=== PATIENT | male | born 1965 | race Caucasian/White ===

== ENCOUNTER 2023-04-19 08:00 | Outpatient (CLI) | payer OTHER ==
--- NOTE | 2023-04-19 13:02 | XRAY Report ---
PROCEDURE: Knee 4 View BILAT INDICATIONS: BILAT KNEE PAIN TECHNIQUE: 4 views of the eye lateral knee(s) were acquired. COMPARISON: None. FINDINGS: Bones: No fractures or dislocations. No suspicious bony lesions. There is moderate to severe bila teral medial compartment narrowing, right greater than left. Moderate bilateral as well as patellofem oral compartment or narrowing present bilaterally. Particular osteophytes are present slightly more p rominent on the right. Lateral patellar subluxation is present on the right. No gross erosions. Soft tissues: Mild bilateral effusions. No suspicious soft tissue calcifications or masses. IMPRESSION: Tricompartmental arthritic change most severe in the right medial compartment. Reviewed by: Latasha Quevedo MD on 04/19/2023 1:00 PM PDT Approved by: Latasha Quevedo MD on 04/19/2023 1:00 PM PDT Station ID: [id number]
== END 2023-04-19 23:59 | disposition home or self-care (01) ==
LOC: DI.WOS 08:00
PROVIDERS: ATTEND Physician Assistant Surgical
DX: M17.0 Bilateral primary osteoarthritis of knee (principal)

== ENCOUNTER 2023-09-08 10:51 | Day surgery (SDC) | payer OTHER ==
[~2023-09-08 10:51] MED LIST: ACETAMINOPHEN 500 MG TABLET PO ONE; BUPIVACAINE 0.25% PF 30 ML VIAL ONE; CELECOXIB 100 MG CAPSULE PO ONE; DEXAMETHASONE 10 MG/ML VIAL ONE; KETOROLAC 30 MG/ML VIAL ONE; VANCOMYCIN 1 GM VIAL ONE; ceFAZolin 2 GM VIAL ONE; dexAMETHasone 4 MG TABLET PO ONE
--- NOTE | 2023-09-08 11:43 | ANESTHESIA ---
Pre-Anesthesia VS, & Labs - Diagnosis left knee osteoarthritis - Procedure left knee total arthroplasty Vital Signs: Temp Pulse Resp BP Pulse Ox O2 Flow Rate 36.4 C L 88 16 149/92 H 98 09/08/23 11:16 09/08/23 11:16 09/08/23 11:16 09/08/23 11:16 09/08/23 11:16 Height: 5 ft 9 in Weight (kg): 104.6 kg Body Mass Index: 34.0 BMI Classification: Obese - NPO >8 hours - Lab Results Current Lab Results: Laboratory Tests 09/08/23 11:28: POC Whole Bld Glucose 114 H Lab results reviewed: Yes Home Medications and Allergies Home Medications: Ambulatory Orders Diclofenac Sodium 1% Gel [Voltaren Gel] 1 applic TOP BID 09/07/23 Naltrexone HCl 1 tab PO DAILY 09/07/23 Naproxen 1 tab PO BID 09/07/23 buPROPion HCL [Bupropion Xl] 2 tab PO DAILY 09/07/23 hydrOXYzine HCL [Hydroxyzine HCl] 1 tab PO BID 09/07/23 oxyCODONE [Roxicodone] 1 tab PO PRN PRN 09/07/23 traMADol [Ultram] 1 tab PO PRN PRN 09/07/23 Diclofenac Sodium 1% Gel [Voltaren Gel] 1 applic TOP BID 09/07/23 Naltrexone HCl 1 tab PO DAILY 09/07/23 Naproxen 1 tab PO BID 09/07/23 buPROPion HCL [Bupropion Xl] 2 tab PO DAILY 09/07/23 hydrOXYzine HCL [Hydroxyzine HCl] 1 tab PO BID 09/07/23 oxyCODONE [Roxicodone] 1 tab PO PRN PRN 09/07/23 traMADol [Ultram] 1 tab PO PRN PRN 09/07/23 Allergies/Adverse Reactions: Allergies Allergy/AdvReac Type Severity Reaction Status Date / Time metoprolol Allergy Unknown Verified 09/08/23 11:24 Anes History & Medical History - Anesthetic History Anesthesia Complications: reports: No previous complications - Medical History Cardiovascular: reports: Atrial fibrillation (2 episodes. Currently in NSR. Had work up at [facility] that was negative) Pulmonary: reports: None Gastrointestinal: reports: None Urinary: reports: None Neuro: reports: None Musculoskeletal: reports: Osteoarthritis Endocrine/Autoimmune: reports: None Skin: reports: None Smoking Status: Former smoker (quit smoking 06/2023) Psychosocial: reports: Depression History of Cancer?: No - Surgical History General: reports: Appendectomy, Colonoscopy Exam General: Alert, Oriented x3, Cooperative, No acute distress Dental: WNL Mouth Openin Fingerbreadth Neck Mobility: Normal Mallampati classification: II Thyromental Distance: 4-6 cm Mental/Cognitive Status: Alert/Oriented X3, Normal for patient Plan Anesthesia Type: Spinal (GA as back up) Consent for Procedure(s) Verified and Reviewed: Yes Code Status: Attempt Resuscitation ASA classification: 2-Mild systemic disease Is this case an emergency?: No
[2023-09-08] MEDS ORDERED: ONDANSETRON 4 MG/2 ML VIAL IVP PRN ×2 (11:50→14:57)
[2023-09-08] MEDS ORDERED: NALOXONE 0.4 MG/ML VIAL IVP PRN (11:50)
[2023-09-08] MEDS ORDERED: MORPHINE 2 MG/ML CARPUJECT IVP PRN (11:50)
[2023-09-08] MEDS ORDERED: ATROPINE ABBOJECT 1 MG/10 ML SYRINGE IVP PRN (11:50)
[2023-09-08] MEDS ORDERED: HYDROmorphone 0.5 MG/0.5 ML SYRINGE IVP PRN (11:50)
[2023-09-08] MEDS ORDERED: fentaNYL 100 MCG/2 ML VIAL IVP PRN (11:50)
[2023-09-08] MEDS ORDERED: LACTATED RINGERS 1,000 ML IV SCH (12:00)
[2023-09-08] MEDS ORDERED: PROPOFOL 500 MG/50 ML 500 MG/50 ML VIAL ONE (12:01)
[2023-09-08] MEDS ORDERED: MIDAZOLAM 2 MG/2 ML VIAL ONE (12:02)
[2023-09-08] MEDS ORDERED: ePHEDrine 50 MG/ML VIAL IVP ONE (12:40)
[2023-09-08] MEDS ORDERED: PHENYLEPHRINE 10 MG/ML VIAL ONE (12:40)
[2023-09-08] MEDS ORDERED: GLYCOPYRROLATE 1 MG/5 ML VIAL ONE (12:43)
[2023-09-08] MEDS ORDERED: BUPIVACAINE 0.25% PF 30 ML VIAL SUBQ ONE (13:18)
[2023-09-08] MEDS ORDERED: KETOROLAC 30 MG/ML VIAL IVP ONE (13:18)
[2023-09-08] MEDS ORDERED: VANCOMYCIN 1 GM VIAL MC ONE (13:22)
[2023-09-08] MEDS ORDERED: HYDROGEN PEROXIDE 3% 473 ML BOTTLE TOP ONE (13:23)
[2023-09-08] MEDS ORDERED: TRANEXAMIC ACID 1,000 MG/10 ML VIAL ONE (14:28)
[2023-09-08] MEDS ORDERED: PROPOFOL 500 MG/50 ML 1,000 MG/100 ML VIAL ONE (14:30)
--- NOTE | 2023-09-08 14:40 | OPERATIVE REPORT ---
Operative Report - General Procedure Date: 09/08/23 Planned Procedure: left total kneeArthroplasty Pre-Op Diagnosis: Varus osteoarthritis left knee Procedure Performed: Left total knee arthroplasty using Perez [employer] Nephew journey 2 cemented total knee: #7 Oxinium cruciate retaining femoral component, #6 tibial baseplate, 9 mm tibial bearing, unresurfaced patella, Palacos antibiotic cement Post Op Diagnosis: Same as preoperative diagnosis - Procedure Note Primary Surgeon: Clarke Botello MD Secondary Surgeon: Sherry LORD Anesthesia Provider: Aaron Peck CRNA Anesthesia Technique: Spinal Estimated Blood Loss (mL): 200 Indications: This is a 58-year-old man with chronic pain to his knees left greater than right. He has tried nonoperative treatment as his been documented in the history and physical and preoperative evaluations without sustained success. He had varus deformity to his left knee, crepitus, decreased motion, tenderness over the medial joint line and to a lesser degree lateral's x-rays showed relatively good patellofemoral joint and lateral compartment but [id number] to the medial compartment with osteophytes. He has had preoperative medical evaluation. An informed consent for left total knee replacement was obtained. Findings: There was eburnated bone surfaces to the medial compartment, partial-thickness loss to lateral compartment articular surface, intact articular cartilage to the patella with the exception of mild superficial defect medial edge of patella facet. The cruciate ligaments are intact. Complications: None - Other Other Information/Narrative: The patient was brought to the operating room table. He had been given a spinal anesthetic. He was placed in a supine position. Sequential compression devices placed on the nonoperative extremity. A foot dykes was applied to the operative table to facilitate intraoperative knee flexion. A pneumatic tourniquet was applied to the proximal left thigh over stockinette. The left lower extremity was prepped and draped in a sterile manner in the usual fashion. A timeout procedure was performed by the entire operating room team and all were in agreement. A midline longitudinal incision was made with the knee in flexion. A medial patellar arthrotomy was performed. Then dissection was carried distally along the medial edge of the patellar tendon and proximally over the medial edge of the quadriceps tendon for approximately 2-1/2 cm. There was a nonspecific synovitis and some fluid within the knee joint that appeared normal. The medial soft tissues from the proximal tibia were elevated to the midline, releasing the deep portion of the medial collateral ligament along the subchondral area of the tibia medially. A small portion of the patellar tendon insertion medially was released. The patellar fat pad was partially excised. The patella was everted, the knee was flexed. The 9.5 mm starting drill was used to open the femoral can al within the notch about a centimeter proximal and slightly medial to the notch. The distal femoral cutting block was impacted, set to a primary cut with 5 degrees of varus. The Catapooolt precision 8 saw was used to provide the distal femoral cut. The pins were left in place and the block was removed. Next the extra medullary tibial guide was aligned to the mechanical axis of the tibia in coronal and sagittal planes. Approximately 3 mm cut was made off the medial tibia which was the most abnormal side.Retractors had been inserted medially, laterally and posteriorly to protect the neurovascular structures while doing the tibial osteotomy through the captured tibial guide, again using the [place] 8 precision blade. The guides were removed. Spacer blocks were inserted and found to have equal flexion and extension gaps with a 9 mm blocks. The femoral sizing guide was then impacted into position and aligned with the transepicondylar axis and [place]itesides line. A size 7 femoral component was indicated, checked with a stylus through the block. The 5 in 1 cutting block was impacted and the multiple cuts were made through the femoral captured guide. The notch was then removed. The trial femoral component fit very well. The tibia was subluxed again using retractors medially, laterally and posteriorly. The #6 tibial guide was aligned with the mechanical axis and rotation was ve rified as well. The drill and punch fin were then used for the tibial guide. A trial reduction was performed with 9 mm tibial bearing. There was good motion, good stability and alignment. There is good tracking of the patella with no thumb technique. The articular cartilage of the patella looked quite good and because of his young age, I elected not to resurface the patellaThe components were removed, tourniquet elevated, pulsatile lavage was performed using dilute hydrogen peroxide and saline. The components were sequentially inserted using Palacos antibiotic cement. The tibial component was inserted first, impacted. Next the femoral component was impacted and fully seated. A trial tibial bearing was inserted. The knee was placed in full extension while the cement hardened. Dilute Betadine irrigation for 3 minutes was utilized. After the cement had hardened, the 9 mm permanent tibial bearing was inserted. The tourniquet was deflated after 18 minutes. Betadine dilute irrigation was performed again as well as inserting 2 g of vancomycin powder. The deep closure was performed with #1 strata fix to try to achieve a watertight closure. The subcutaneous tissue was closed with 2 0 strata fix. The skin was closed with 3- 0 MonocrylDermabond, Mepilex dressing and [place] wrap. He received 2 g of Ancef intravenously. He received 2 g of tranxemic acid. A physician housing assistant property manager was medically necessary to help with retraction, exposure, protection of vital structures, prepping and draping, wound closure and dressingHe tolerated the procedure well
[2023-09-08] MEDS ORDERED: LACTATED RINGERS 500 ML IV ONE (14:56)
[2023-09-08] MEDS ORDERED: DOCUSATE SODIUM 100 MG CAPSULE PO PRN (14:57)
[2023-09-08] MEDS ORDERED: SODIUM CHLORIDE FLUSH 0.9% 10 ML SYRINGE IVP PRN (14:57)
[2023-09-08] MEDS ORDERED: fentaNYL 250 MCG/5 ML VIAL IVP PRN (14:57)
[2023-09-08] MEDS ORDERED: GABAPENTIN 300 MG CAPSULE PO PRN (15:03)
[2023-09-08] MEDS ORDERED: ONDANSETRON 4 MG/2 ML VIAL ONE (15:10)
--- NOTE | 2023-09-08 15:28 | ANESTHESIA POST OP EVALUATION ---
Anesthesia Post Eval - Post Anesthesia Eval Vitals: Last Vital Signs Temp 36.2 C L 09/08/23 14:56 Pulse 76 09/08/23 15:10 Resp 12 09/08/23 15:10 BP 102/70 09/08/23 15:10 Pulse Ox 97 09/08/23 15:10 O2 Flow Rate CV Function Including HR & BP: Stable Pain Control: Satisfactory Nausea & Vomiting: Negative Mental Status: Baseline Respiratory Status: Airway Patent Hydration Status: Satisfactory Anesthesia Complications: None
[2023-09-08] MEDS: ceFAZolin (2G) 2 GM in SODIUM CHLORIDE 0.9% MINIBAG 100 ML IV SCH ×2 (15:54→22:23)
[2023-09-08] MEDS: ACETAMINOPHEN 500 MG TABLET PO SCH ×2 (15:55→20:18)
[2023-09-08] MEDS: SODIUM CHLORIDE FLUSH 0.9% 10 ML SYRINGE IVP SCH ×2 (16:02→23:53)
[2023-09-08] MEDS: NS W/20 MEQ KCL 1,000 ML IV SCH (16:02)
--- NOTE | 2023-09-08 18:02 | XRAY Report ---
PROCEDURE: Knee 2 View LT INDICATIONS: post operative imaging TECHNIQUE: 2 views of the left knee(s) were acquired. COMPARISON: None. FINDINGS: Bones: Left knee arthroplasty in expected position. Soft tissues: Postoperative changes. IMPRESSION: Postoperative changes following left knee arthroplasty. Reviewed by: Gabe Gtz MD on 09/08/2023 6:01 PM PDT Approved by: Gabe Gtz MD on 09/08/2023 6:01 PM PDT Station ID: [id number]
[2023-09-08] MEDS: traMADol 50 MG TABLET PO SCH ×2 (18:53→23:53)
[2023-09-08] MEDS: CELECOXIB 100 MG CAPSULE PO SCH (20:18)
[2023-09-08] MEDS: ethyl alcohoL 62% SWAB AMPULE NAS SCH (20:18)
[2023-09-08] MEDS: ASPIRIN EC 81 MG TABLET PO SCH (20:18)
[2023-09-08] MEDS: oxyCODONE 5 MG TABLET PO PRN (21:17)
[2023-09-09] MEDS: ACETAMINOPHEN 500 MG TABLET PO SCH (02:22)
[2023-09-09] MEDS: NS W/20 MEQ KCL 1,000 ML IV SCH ×2 (02:25→14:05)
[2023-09-09] MEDS: oxyCODONE 5 MG TABLET PO PRN ×2 (03:51→10:37)
[2023-09-09] MEDS: traMADol 50 MG TABLET PO SCH ×2 (05:43→14:06)
--- NOTE | 2023-09-09 08:11 | PROVIDER PROGRESS NOTE ---
Subjective - General Procedure Date: 09/08/23 Post Op Days: 1 Procedure Performed: Left total knee arthroplasty - Other Other Information/Narrative: Alert, sitting up right in bed, watching videos on his phone He denies chest pain, dyspnea, nausea and emesis Pain is moderately controlled. He reports taking oxycodone twice overnight He has not yet been evaluated by physical therapy Objective - Patient Data Reviewed Vital Signs: Yes Vital Signs: Vital Signs x48h Temp Pulse Resp BP Pulse Ox 09/09/23 05:25 36.5 C 84 18 138/84 H 95 Weight: Weight 09/07/23 09/08/23 09/09/23 23:59 23:59 23:59 Weight (kg) 104.6 kg Intake & Output: Intake and Output Totals x24h 09/07/23 09/08/23 09/09/23 23:59 23:59 23:59 Intake Total 1700 1500 Output Total 1150 1125 Balance 550 375 - Lab Results Other Lab Results: Lab Results x24hrs 09/08/23 Range/Units 11:28 POC Whole Bld Glucose 114 H (70 - 100) mg/dL - Imaging Results Radiology Imaging: positive: Prelim report reviewed - Current Medications Current Medications: Current Medications Generic Name Dose Route Start Last Admin Trade Name Freq PRN Reason Stop Dose Admin Acetaminophen 1,000 mg 09/08/23 15:00 09/09/23 02:22 Acetaminophen 500 Mg Tablet PO 1,000 mg Q6H ALEX Administration Alcohol 1 amp 09/08/23 21:00 09/08/23 20:18 Ethyl Alcohol 62% Swab Ampule RONALD 1 amp BID ALEX Administration Aspirin 81 mg 09/08/23 21:00 09/08/23 20:18 Aspirin Ec 81 Mg Tablet PO 81 mg BID ALEX Administration Celecoxib 200 mg 09/08/23 21:00 09/08/23 20:18 Celecoxib 100 Mg Capsule PO Not Given BID ALEX Potassium Chloride/Sodium Chloride 1,000 mls @ 100 mls/hr 09/08/23 15:00 09/09/23 02:25 Normal Saline 0.9% W/20 Meq Kcl IV 100 mls/hr .Q10H ALEX Administration Oxycodone HCl 5 mg 09/08/23 14:57 09/09/23 03:51 Oxycodone 5 Mg Tablet PO 5 mg Q6HR PRN Administration Severe Breakthrough pain(8-10) Sodium Chloride 10 ml 09/08/23 17:00 09/08/23 23:53 Sodium Chloride Flush 0.9% 10 Ml Syringe IVP Not Given 0100,0900,1700 [facility] Tramadol HCl 50 mg 09/08/23 18:00 09/09/23 05:43 Tramadol 50 Mg Tablet PO 50 mg Q6HR [facility] Administration - Physical Exam Comments/Other: well developed, well nourished, 58 year old male, no acute distress. Pleasant affect Dressing is dry and intact without drainage. No hematoma. Neurovascular intact to the left lower extremity in the femoral and sciatic nerve distribution. ABX Reporting Has patient been on IV antibiotics over the past 48 hours?: Yes Impression/Plan - Problem List Problem List: 58-year-old male with a past medical history of anxiety, alcohol use and paroxysmal A-fib (2018) is postoperative day 1 from a left total knee arthroplasty by Dr. Botello on 09/08/[address] [facility]. His pain is moderately controlled and he is awaiting physical therapy evaluation today. He is tolerating normal diet without nausea or emesis. He is passing urine spontaneously. IV antibiotics completed overnight. Plan: - DVT prophylaxis with 81 mg of aspirin twice daily for 6 weeks, SCDs in hospital - Physical and occupational therapy evaluation today and assessment for discharge home - Pain control with scheduled tylenol, celebrex, tramadol and oxycodone and IV fentanyl as needed - Weight bearing as tolerated with front wheeled walker at all times - Follow up with orthopedic clinic in 5 days - Ice pack as needed - Mepilex dressing to remain in place until follow up - Refer to OPS discharge instructions and call the orthopedic office with outstanding questions - Bowel regimen while in the hospital - Normal diet, IV fluids to be discontinued when tolerating oral diet without nausea and emesis - Gabapentin 600 mg qAM as needed - home medication - Bupropion 300 mg daily - home medication
[2023-09-09] MEDS ORDERED: buPROPion XL 150 MG TABLET PO SCH (09:00)
[2023-09-09] MEDS: ethyl alcohoL 62% SWAB AMPULE NAS SCH (09:15)
[2023-09-09] MEDS: CELECOXIB 100 MG CAPSULE PO SCH (09:16)
[2023-09-09] MEDS: ASPIRIN EC 81 MG TABLET PO SCH (09:16)
[2023-09-09] MEDS: SODIUM CHLORIDE FLUSH 0.9% 10 ML SYRINGE IVP SCH ×2 (10:23→15:21)
--- NOTE | 2023-09-09 11:22 | PHARMACY PROGRESS NOTE ---
- Best Possible Medication History Admit Date and Time: Processed by: Nursing As the person ultimately responsible for medication therapy, providers are able to order a medication from an existing home medication list in [facility] via the "Reconcile Routine" prior to Confirmation of that medication by clerical support. Such practice is discouraged except when the physician, in their clinical judgment, deems that a medical need exists for a medication without regard to previous use.
[2023-09-09 16:56] VITALS: BP 149/94; O2SAT 93
== END 2023-09-09 16:30 | disposition home or self-care (01) ==
LOC: SDS 10:51 → MS2 12:10 → SDS 09-09 16:30
PROVIDERS: ATTEND Orthopaedic Surgery
DX: M17.12 Unilateral primary osteoarthritis, left knee (principal); I48.0 Paroxysmal atrial fibrillation; E66.9 Obesity, unspecified; Z68.34 Body mass index [BMI] 34.0-34.9, adult; Z87.891 Personal history of nicotine dependence
CPT/HCPCS: 27447; 73560; 97110; 97161; 97166; 97530; A9270; C1713; J3370; J7120

== ENCOUNTER 2023-09-27 09:45 | Outpatient (CLI) | payer OTHER ==
[2023-09-27 10:14] LABS: BF CLARITY BLOODY; BF COLOR BLOODY; BF SOURCE SYNOVIAL; CC,BF RBC 70000 /mm^3; CC,BF WBC 71530 /mm^3
[2023-09-27 10:32] LABS: LYMPHOCYTES %,BODY FLUID 7 %; MONOCYTES %,BODY FLUID 3 %; NEUTROPHILS %, BF 90 %
== END 2023-09-27 09:46 | disposition home or self-care (01) ==
LOC: LAB.R 09:45
PROVIDERS: ATTEND Orthopaedic Surgery
DX: Z96.652 Presence of left artificial knee joint (principal)
CPT/HCPCS: 87070; 87205; 89051

== ENCOUNTER 2023-09-29 10:03 | Inpatient (IN) | payer OTHER ==
[2023-09-29] MEDS ORDERED: ceFAZolin 2 GM VIAL ONE (10:09)
[2023-09-29] MEDS ORDERED: ACETAMINOPHEN 500 MG TABLET PO ONE (10:09)
[2023-09-29] MEDS ORDERED: CELECOXIB 100 MG CAPSULE PO ONE (10:09)
[2023-09-29] MEDS ORDERED: BUPIVACAINE 0.25% PF 30 ML VIAL ONE (10:11)
[2023-09-29] MEDS ORDERED: KETOROLAC 30 MG/ML VIAL ONE (10:11)
[2023-09-29] MEDS ORDERED: VANCOMYCIN 1 GM VIAL ONE (10:11)
[2023-09-29] MEDS ORDERED: LACTATED RINGERS 1,000 ML IV ONE (10:40)
[2023-09-29] MEDS ORDERED: PROPOFOL 500 MG/50 ML 500 MG/50 ML VIAL ONE ×2 (11:07→12:46)
[2023-09-29] MEDS ORDERED: fentaNYL 100 MCG/2 ML VIAL ONE ×2 (11:09→14:54)
[2023-09-29] MEDS ORDERED: MIDAZOLAM 2 MG/2 ML VIAL ONE ×2 (11:09→11:31)
[2023-09-29 11:19] LABS: BASOPHILS % (AUTO) 0.3 %; EOSINOPHILS # (AUTO) 0.2 10^3/uL (0.0-0.7); EOSINOPHILS % (AUTO) 1.4 %; HCT - HEMATOCRIT 30.6 % (42.0-52.0); HGB - HEMOGLOBIN 9.8 g/dL (14.0-18.0); LYMPHOCYTES # (AUTO) 0.6 10^3/uL (1.5-3.5); LYMPHOCYTES % (AUTO) 5.4 %; MEAN CORPUSCULAR HEMOGLOBIN 31.5 pg (27.0-31.0); MEAN CORPUSCULAR VOLUME 98.4 fL (80.0-94.0); MEAN PLATELET VOLUME 8.9 fL (7.4-11.4); MONOCYTES # (AUTO) 1.2 10^3/uL (0.0-1.0); MONOCYTES % (AUTO) 10.9 %; NEUTROPHILS % (AUTO) 81.4 %; PLT - PLATELET COUNT 355 10^3/uL (130-450); RED BLOOD COUNT 3.11 10^6/uL (4.70-6.10); RED CELL DISTRIBUTION WIDTH 14.5 % (12.0-15.0); WHITE BLOOD COUNT 11.1 x10^3/uL (4.8-10.8)
[2023-09-29] MEDS ORDERED: PHENYLEPHRINE HCL 0.5 MG/5 ML AMPULE ONE (11:41)
[2023-09-29 11:43] LABS: ALBUMIN 3.5 g/dL (3.2-5.5); ALBUMIN/GLOBULIN RATIO 1.1 (1.0-2.2); BILIRUBIN,TOTAL 0.6 mg/dL (0.2-1.0); CALCIUM 9.1 mg/dL (8.5-10.3); CREATININE 0.9 mg/dL (0.6-1.3); POTASSIUM 3.8 mmol/L (3.5-4.5); TOTAL PROTEIN 6.7 g/dL (6.4-8.9)
[2023-09-29] MEDS ORDERED: TRANEXAMIC ACID 1,000 MG/10 ML VIAL ONE ×2 (11:54→13:28)
[2023-09-29] MEDS ORDERED: KETOROLAC 30 MG/ML VIAL IVP ONE (12:25)
[2023-09-29] MEDS ORDERED: BUPIVACAINE 0.25% PF 30 ML VIAL SUBQ ONE ×2 (12:26)
[2023-09-29] MEDS ORDERED: HYDROGEN PEROXIDE 3% 473 ML BOTTLE TOP ONE ×2 (12:26)
--- NOTE | 2023-09-29 13:41 | ANESTHESIA ---
Pre-Anesthesia VS, & Labs - Diagnosis Left knee joint infection - Procedure Irrigation and debridement of Left knee joint with poly exchange Vital Signs: Temp Pulse Resp BP Pulse Ox O2 Flow Rate 36.2 C L 108 H 16 131/72 H 99 0 09/29/23 10:41 09/29/23 10:41 09/29/23 10:41 09/29/23 10:41 09/29/23 10:41 09/29/23 10:41 Height: 5 ft 10 in Weight (kg): 102.06 kg Body Mass Index: 32.3 BMI Classification: Obese - NPO >8 hours - Lab Results Current Lab Results: Laboratory Tests 09/29/23 10:51: POC Whole Bld Glucose 95 09/29/23 10:50: Sodium 136, Potassium 3.8, Chloride 102, Carbon Dioxide 26, Anion Gap 8.0, BUN 25 H, Creatinine 0.9, Estimated GFR (MDRD) 87 L, Glucose 96, Calcium 9.1, Total Bilirubin 0.6, AST 25, ALT 20, Alkaline Phosphatase 97, C- Reactive Protein 35.0 H, Total Protein 6.7, Albumin 3.5, Globulin 3.2, Albumin/Globulin Ratio 1.1 09/29/23 10:50: ESR 79 H 09/29/23 10:50: WBC 11.1 H, RBC 3.11 L, Hgb 9.8 L, Hct 30.6 L, MCV 98.4 H, MCH 31.5 H, MCHC 32.0, RDW 14.5, Plt Count 355, MPV 8.9, Neut # (Auto) 9.0 H, Lymph # (Auto) 0.6 L, [place] # (Auto) 1.2 H, Eos # (Auto) 0.2, Baso # (Auto) 0.0, Abso lute Nucleated RBC 0.00, Nucleated RBC % 0.0 Lab results reviewed: Yes Fish Bones: 09/29/23 10:50 09/29/23 10:50 Home Medications and Allergies Home Medications: Ambulatory Orders Diclofenac Sodium 1% Gel [Voltaren Gel] 1 applic TOP BID 09/27/23 buPROPion HCL [Wellbutrin Xl] 300 mg PO DAILY 09/27/23 oxyCODONE [Roxicodone] 5 mg PO Q4-6H 09/27/23 Atorvastatin [Lipitor] 1 mg ORAL DAILY 09/29/23 Diclofenac Sodium 1% Gel [Voltaren Gel] 1 applic TOP BID 09/27/23 buPROPion HCL [Wellbutrin Xl] 300 mg PO DAILY 09/27/23 oxyCODONE [Roxicodone] 5 mg PO Q4-6H 09/27/23 Atorvastatin [Lipitor] 1 mg ORAL DAILY 09/29/23 Allergies/Adverse Reactions: Allergies Allergy/AdvReac Type Severity Reaction Status Date / Time metoprolol Allergy Unknown Verified 09/26/23 20:44 Anes History & Medical History - Anesthetic History Anesthesia Complications: reports: No previous complications - Medical History Cardiovascular: reports: Atrial fibrillation (2 prior episodes, currently NSR) Pulmonary: reports: None Gastrointestinal: reports: None Urinary: reports: None Neuro: reports: None Musculoskeletal: reports: Osteoarthritis, Other (Left knee joint infection) Endocrine/Autoimmune: reports: None Skin: reports: None Smoking Status: Former smoker (quit smoking 06/2023) Psychosocial: reports: No issues indicated History of Cancer?: No - Surgical History General: reports: Appendectomy, Colonoscopy Orthopedic: reports: Knee replacement Exam General: Alert, Oriented x3, Cooperative, No acute distress Dental: Poor dentition Mouth Openin Fingerbreadth Neck Mobility: Normal Mallampati classification: II Thyromental Distance: 4-6 cm Mental/Cognitive Status: Alert/Oriented X3, Normal for patient Plan Anesthesia Type: Spinal Consent for Procedure(s) Verified and Reviewed: Yes Code Status: Attempt Resuscitation ASA classification: 2-Mild systemic disease Is this case an emergency?: No
[2023-09-29] MEDS ORDERED: ATROPINE ABBOJECT 1 MG/10 ML SYRINGE IVP PRN (13:42)
[2023-09-29] MEDS ORDERED: NALOXONE 0.4 MG/ML VIAL IVP PRN (13:42)
[2023-09-29] MEDS ORDERED: ONDANSETRON 4 MG/2 ML VIAL IVP PRN ×2 (13:42→14:09)
[2023-09-29] MEDS ORDERED: MORPHINE 2 MG/ML CARPUJECT IVP PRN (13:42)
[2023-09-29] MEDS ORDERED: HYDROmorphone 0.5 MG/0.5 ML SYRINGE IVP PRN (13:42)
--- NOTE | 2023-09-29 13:46 | OPERATIVE REPORT ---
Operative Report - General Admit Date: 09/29/23 Procedure Date: 09/29/23 Planned Procedure: . Irrigation and debridement left knee joint periprosthetic infection; DAIR procedure with tibial bearing exchange Pre-Op Diagnosis: Acute periprosthetic left knee joint infection Procedure Performed: Irrigation and debridement left knee joint, DAIR procedure with exchange of tibial bearing; 9 mm medial pivot tibial bearing;Insertion of PICC line Post Op Diagnosis: Same as preoperative diagnosis - Procedure Note Primary Surgeon: Clarke Botello MD Secondary Surgeon: Saroj Hermosillo MD, Sherry Swift [facility] Anesthesia Provider: Isidra Dubois Anesthesia Technique: Spinal Estimated Blood Loss (mL): 100 Indications: This is a 58-year-old man who underwent a primary left total knee arthroplasty for osteoarthritis left knee approximately 2 weeks ago. He developed acute signs of infection approximately 4 days ago with increased pain, swelling and redness about left knee. There is no drainage from his incision. An arthrocentesis of the left knee was performed 2 days ago and approximately 100 cc of turbid synovial fluid was obtained. This synovial fluid had a white blood cell count of approximately 71,090% neutrophils. His most recent erythrocyte sedimentation rate is 79 and C-reactive protein of 35. His white blood cell count is 11,100. The cultures are positive from the arthrocentesis with Staphylococcus organism that is sensitive to oxacillin. He also had a 4+ positive leukocyte esterase test performed on the synovial fluid. The treatment options have been discussed with him and the plan was a DAIR procedure, single but possibly a double meaning two procedures. Also, he agreed to insertion of PICC line for intravenous antibiotic administration following hospital dischargeAn informed consent was obtained prior to surgery. He has been admitted as an inpatient Findings: The knee components were completely intact and stable. There was a large amount of turbid fluid upon entering the knee joint, approximately 75 to 100 cc. The arthrotomy incision had disrupted medially but the skin incision was still intact. There was some soft tissue infected membranous appearing tissue over the implants but this was small. Most of the tissue reaction was hyperemia, some synovium appeared necrotic in the suprapatellar pouch. The fluid was turbid and 3 sets of fluid cultures were sent for anaerobic and aerobic culture and 1 large set of soft tissue for the same. Complications: None - Other Other Information/Narrative: After satisfactory anesthesia had been achieved, patient was placed in the supine position. A pneumatic tourniquet was applied to the proximal left thigh over stockinette. A bump was placed on the operating room table to help with intraoperative knee flexion. The left lower extremity was prepped and draped in a sterile manner in the usual fashion. A timeout procedure was performed by the entire operating room team and all were in agreement. The left leg was exsanguinated, pneumatic tourniquet elevated to 250 mmHg. The previous midline longitudinal incision was opened with a large egress of fluid after just entering through the skin as the medial arthrotomy was disrupted. The fluid was cultured, 3 sets of fluid culture for aerobic and anaerobic bacteriology. Debridement was then carried out of soft tissue using a uterine curette, rondure and some sharp dissection as well. The tibial bearing was removed with an osteotome so that a complete debridement of all the knee compart ments could be performed. Tissue cultures were obtained. Synovium was debrided as well. The knee had been flexed to access the posterior compartment. The patella had not been resurfaced and was intact. A sterile toothbrush was then utilized to scrub the tibial baseplate and femoral component. This was initially performed with chlorhexidine soap, then Betadine dilute.Before switching to Betadine, pulsatile lavage with normal saline was performed. After using chlorhexidine, Betadine and the pulsatile lavage, a new 9 mm medial pivot shift tibial bearing was inserted. Additional irrigation was carried out with Dakin's solution and then hydrogen peroxide, again using pulsatile saline lavage in between these 2 antiseptic washes. A total of almost 4 bags of saline were utilized, 3 L bags, utilizing pulsatile lavage. The tourniquet was deflated. Hemostasis was achieved with electrocautery. The arthrotomy incision was closed with #1 strata fix suture. The very distal end of the arthrotomy did not have full closure but did have closure of the joint. Some of the tissue distally had been debrided. The knee was stable in full extension, mid flexion and 90 degrees flexion. He had full extension and full flexion and excellent patellar tracking. The subcutaneous tissue was closed with 2 oh strata fix. The skin was closed with 3-0 Monocryl, Dermabond. Xeroform was applied to the incision, sterile gauze, cast padding from thigh to ankle with [place] wrap. He received 2 g of Ancef prior to the incision. He received 2 g of tranxemic acid, 1 g before the the incision and 1 g at the closure. He is also receiving a PICC line and additional gram of Ancef was given. The tourniquet time was approximately 73 minutesHe tolerated the procedure well. A physician dental assistant medical assistant was utilized to help with retraction, protection of vital structures, wound closure, dressing
[2023-09-29] MEDS ORDERED: ceFAZolin 1 GM VIAL ONE (13:49)
[2023-09-29] MEDS ORDERED: LACTATED RINGERS 1,000 ML IV SCH (14:00)
[2023-09-29] MEDS ORDERED: SODIUM CHLORIDE FLUSH 0.9% 10 ML SYRINGE IVP PRN (14:09)
[2023-09-29] MEDS ORDERED: DOCUSATE SODIUM 100 MG CAPSULE PO PRN (14:09)
[2023-09-29] MEDS ORDERED: LACTATED RINGERS 950 ML IV ONE ×2 (14:34)
[2023-09-29] MEDS: fentaNYL 100 MCG/2 ML VIAL IVP PRN ×4 (14:53→15:08)
--- NOTE | 2023-09-29 14:54 | XRAY Report ---
PROCEDURE: Chest for Line Placement INDICATIONS: PICC LINE PLACEMENT, LEFT ARM TECHNIQUE: One view of the chest was acquired. COMPARISON: None. FINDINGS: Surgical changes and devices: Left arm PICC line is seen with the tip in the mid SVC. Lungs and pleura: Left basilar atelectasis. Blunting of the left costophrenic angle consistent with a small left pleural effusion. Mediastinum: Mediastinal contours appear normal. Heart size is normal. Bones and chest wall: No suspicious bony lesions. Overlying soft tissues appear unremarkable. IMPRESSION: 1. Left arm PICC line appears well-positioned. 2. Small left pleural effusion and left basilar atelectasis. Reviewed by: Zay Zavala on 09/29/2023 2:53 PM PDT Approved by: Zay Zavala on 09/29/2023 2:53 PM PDT Station ID: [id number]
[2023-09-29] MEDS ORDERED: HYDROmorphone 0.5 MG/0.5 ML SYRINGE ONE (15:21)
--- NOTE | 2023-09-29 15:26 | ANESTHESIA POST OP EVALUATION ---
Anesthesia Post Eval - Post Anesthesia Eval Vitals: Last Vital Signs Temp 36.0 C L 09/29/23 15:20 Pulse 106 H 09/29/23 15:20 Resp 19 09/29/23 15:20 BP 150/86 H 09/29/23 15:20 Pulse Ox 98 09/29/23 15:20 O2 Flow Rate 0 09/29/23 10:41 CV Function Including HR & BP: Stable Pain Control: Satisfactory Nausea & Vomiting: Negative Mental Status: Baseline Respiratory Status: Airway Patent Hydration Status: Satisfactory Anesthesia Complications: None
[2023-09-29] MEDS ORDERED: MORPHINE 2 MG/ML CARPUJECT ONE (15:30)
[2023-09-29] MEDS: oxyCODONE 5 MG TABLET PO PRN ×2 (16:11→22:15)
[2023-09-29] MEDS: ACETAMINOPHEN 500 MG TABLET PO SCH ×2 (16:11→21:04)
[2023-09-29] MEDS: NS W/20 MEQ KCL 1,000 ML IV SCH (16:13)
--- NOTE | 2023-09-29 16:37 | PHARMACY PROGRESS NOTE ---
- Best Possible Medication History Admit Date and Time: 09/29/23 1003 Processed by: Pharmacy Medication History completed: Yes Patient Interview: Completed (MEDREC COMPLETED BY ANNELIESE PIÑA.) As the person ultimately responsible for medication therapy, providers are able to order a medication from an existing home medication list in [facility] via the "Reconcile Routine" prior to Confirmation of that medication by office support clerk. Such practice is discouraged except when the physician, in their clinical judgment, deems that a medical need exists for a medication without regard to previous use.
[2023-09-29] MEDS: ceFAZolin (2G) 2 GM in SODIUM CHLORIDE 0.9% MINIBAG 100 ML IV SCH ×2 (16:48→23:59)
[2023-09-29] MEDS: traMADol 50 MG TABLET PO SCH (18:01)
--- NOTE | 2023-09-29 20:01 | ANESTHESIA POST OP EVALUATION ---
Anesthesia Post Eval - Post Anesthesia Eval Vitals: Last Vital Signs Temp 36.6 C 09/29/23 18:50 Pulse 117 H 09/29/23 18:50 Resp 20 09/29/23 18:50 BP 125/61 09/29/23 18:50 Pulse Ox 93 09/29/23 18:50 O2 Flow Rate 0 09/29/23 17:37 CV Function Including HR & BP: Stable Pain Control: Satisfactory Nausea & Vomiting: Negative Mental Status: Baseline Respiratory Status: Airway Patent Hydration Status: Satisfactory Anesthesia Complications: None
--- NOTE | 2023-09-29 20:02 | ANESTHESIA PROCEDURE NOTE ---
Anesth Central Line Template - Central Line Central Line Preparation: Consent Obtained Central line location: Left Basilic Central line type: PICC Single Lumen Central line catheter tip site resides: [facility], right Central line aftercare: Secured, Placement confirmed, No pneumothorax, No complications, Bundle checklist complete, Pt tolerated well
[2023-09-29] MEDS ORDERED: ASPIRIN EC 81 MG TABLET PO SCH (21:00)
[2023-09-29] MEDS: SODIUM CHLORIDE FLUSH 0.9% 10 ML SYRINGE IVP SCH (21:04)
[2023-09-29] MEDS: ethyl alcohoL 62% SWAB AMPULE NAS SCH (21:04)
[2023-09-29] MEDS: CELECOXIB 100 MG CAPSULE PO SCH (21:04)
[2023-09-29] MEDS: rifAMPin 150 MG CAPSULE PO SCH (21:04)
[2023-09-30] MEDS: traMADol 50 MG TABLET PO SCH ×4 (00:02→18:00)
[2023-09-30] MEDS: SODIUM CHLORIDE FLUSH 0.9% 10 ML SYRINGE IVP SCH ×3 (00:03→16:09)
[2023-09-30] MEDS: ACETAMINOPHEN 500 MG TABLET PO SCH ×4 (02:56→21:23)
[2023-09-30] MEDS: oxyCODONE 5 MG TABLET PO PRN ×2 (04:24→16:07)
[2023-09-30] MEDS: fentaNYL 250 MCG/5 ML VIAL IVP PRN ×2 (05:40→10:27)
[2023-09-30 05:48] LABS: BASOPHILS % (AUTO) 0.2 %; EOSINOPHILS # (AUTO) 0.1 10^3/uL (0.0-0.7); EOSINOPHILS % (AUTO) 1.5 %; HCT - HEMATOCRIT 24.7 % (42.0-52.0); HGB - HEMOGLOBIN 8.1 g/dL (14.0-18.0); LYMPHOCYTES # (AUTO) 0.9 10^3/uL (1.5-3.5); LYMPHOCYTES % (AUTO) 10.2 %; MEAN CORPUSCULAR HGB CONC 32.8 g/dL (32.0-36.0); MEAN CORPUSCULAR VOLUME 97.6 fL (80.0-94.0); MEAN PLATELET VOLUME 8.5 fL (7.4-11.4); MONOCYTES # (AUTO) 1.3 10^3/uL (0.0-1.0); MONOCYTES % (AUTO) 14.8 %; NEUTROPHILS # (AUTO) 6.5 10^3/uL (1.5-6.6); NEUTROPHILS % (AUTO) 72.4 %; PLT - PLATELET COUNT 263 10^3/uL (130-450); RED BLOOD COUNT 2.53 10^6/uL (4.70-6.10); RED CELL DISTRIBUTION WIDTH 14.8 % (12.0-15.0)
[2023-09-30] MEDS: NS W/20 MEQ KCL 1,000 ML IV SCH ×2 (06:31→19:40)
[2023-09-30] MEDS: ceFAZolin (2G) 2 GM in SODIUM CHLORIDE 0.9% MINIBAG 100 ML IV SCH ×2 (07:50→16:08)
[2023-09-30] MEDS: rifAMPin 150 MG CAPSULE PO SCH ×2 (09:00→21:25)
[2023-09-30] MEDS: ethyl alcohoL 62% SWAB AMPULE NAS SCH ×2 (09:01→21:24)
[2023-09-30] MEDS: CELECOXIB 100 MG CAPSULE PO SCH ×2 (09:01→21:24)
[2023-09-30] MEDS: buPROPion XL 150 MG TABLET PO SCH (09:01)
[2023-09-30] MEDS: CHOLECALCIFEROL 5,000 UNIT CAPSULE PO SCH (09:02)
[2023-09-30] MEDS: ASPIRIN EC 81 MG TABLET PO SCH ×2 (09:03→21:24)
[2023-09-30] MEDS: ATORVASTATIN 10 MG TABLET PO SCH (09:03)
--- NOTE | 2023-09-30 09:08 | PROVIDER PROGRESS NOTE ---
Subjective - General Admit Date: 09/29/23 Procedure Date: 09/29/23 Post Op Days: 1 Procedure Performed: DAIR Procedure of left knee arthroplasty - Other Other Information/Narrative: Pain in left knee is moderate today He endorses little sleep over night secondary to back and neck pain, chronic in nature He has not been evaluated by physical therapy yet No nausea, emesis, dyspnea or chest pain Objective - Patient Data Reviewed Vital Signs: Yes Vital Signs: Vital Signs x48h Temp Pulse Resp BP Pulse Ox 09/30/23 07:34 36.7 C 104 H 20 128/62 96 09/30/23 05:24 36.8 C 110 H 20 127/64 92 Weight: Weight 09/28/23 09/29/23 09/30/23 23:59 23:59 23:59 Weight (kg) 102.06 kg Intake & Output: Intake and Output Totals x24h 09/28/23 09/29/23 09/30/23 23:59 23:59 23:59 Intake Total 1403.75 2266.25 Output Total 1150 1850 Balance 253.75 416.25 - Lab Results Lab Results: 09/30/23 05:25 09/29/23 10:50 Other Lab Results: Lab Results x24hrs 09/30/23 09/29/23 09/29/23 Range/Units 05:25 10:51 10:50 WBC 9.0 (4.8-10.8) x10^3/uL RBC 2.53 L (4.70-6.10) 10^6/uL Hgb 8.1 L (14.0-18.0) g/dL Hct 24.7 L (42.0-52.0) % MCV 97.6 H (80.0-94.0) fL MCH 32.0 H (27.0-31.0) pg MCHC 32.8 (32.0-36.0) g/dL RDW 14.8 (12.0-15.0) % Plt Count 263 (130-450) 10^3/uL MPV 8.5 (7.4-11.4) fL Neut # (Auto) 6.5 (1.5-6.6) 10^3/uL Lymph # (Auto) 0.9 L (1.5-3.5) 10^3/uL Price # (Auto) 1.3 H (0.0-1.0) 10^3/uL Eos # (Auto) 0.1 (0.0-0.7) 10^3/uL Baso # (Auto) 0.0 (0.0-0.1) 10^3/uL Absolute Nucleated RBC 0.00 x10^3/uL Nucleated RBC % 0.0 /100WBC ESR (0-20) mm/Hr Sodium 136 (135-145) mmol/L Potassium 3.8 (3.5-4.5) mmol/L Chloride 102 (101-111) mmol/L Carbon Dioxide 26 (21-32) mmol/L Anion Gap 8.0 (6-13) BUN 25 H (6-20) mg/dL Creatinine 0.9 (0.6-1.3) mg/dL Estimated GFR (MDRD) 87 L (>89) Glucose 96 (74-104) mg/dL POC Whole Bld Glucose 95 (70 - 100) mg/dL Calcium 9.1 (8.5-10.3) mg/dL Total Bilirubin 0.6 (0.2-1.0) mg/dL AST 25 (10-42) IU/L ALT 20 (10-60) IU/L Alkaline Phosphatase 97 (42-121) IU/L C-Reactive Protein 35.0 H (<0.5) mg/dL Total Protein 6.7 (6.4-8.9) g/dL Albumin 3.5 (3.2-5.5) g/dL Globulin 3.2 (2.1-4.2) g/dL Albumin/Globulin Ratio 1.1 (1.0-2.2) 09/29/23 09/29/23 Range/Units 10:50 10:50 WBC 11.1 H (4.8-10.8) x10^3/uL RBC 3.11 L (4.70-6.10) 10^6/uL Hgb 9.8 L (14.0-18.0) g/dL Hct 30.6 L (42.0-52.0) % MCV 98.4 H (80.0-94.0) fL MCH 31.5 H (27.0-31.0) pg MCHC 32.0 (32.0-36.0) g/dL RDW 14.5 (12.0-15.0) % Plt Count 355 (130-450) 10^3/uL MPV 8.9 (7.4-11.4) fL Neut # (Auto) 9.0 H (1.5-6.6) 10^3/uL Lymph # (Auto) 0.6 L (1.5-3.5) 10^3/uL Price # (Auto) 1.2 H (0.0-1.0) 10^3/uL Eos # (Auto) 0.2 (0.0-0.7) 10^3/uL Baso # (Auto) 0.0 (0.0-0.1) 10^3/uL Absolute Nucleated RBC 0.00 x10^3/uL Nucleated RBC % 0.0 /100WBC ESR 79 H (0-20) mm/Hr Sodium (135-145) mmol/L Potassium (3.5-4.5) mmol/L Chloride (101-111) mmol/L Carbon Dioxide (21-32) mmol/L Anion Gap (6-13) BUN (6-20) mg/dL Creatinine (0.6-1.3) mg/dL Estimated GFR (MDRD) (>89) Glucose (74-104) mg/dL POC Whole Bld Glucose (70 - 100) mg/dL Calcium (8.5-10.3) mg/dL Total Bilirubin (0.2-1.0) mg/dL AST (10-42) IU/L ALT (10-60) IU/L Alkaline Phosphatase (42-121) IU/L C-Reactive Protein (<0.5) mg/dL Total Protein (6.4-8.9) g/dL Albumin (3.2-5.5) g/dL Globulin (2.1-4.2) g/dL Albumin/Globulin Ratio (1.0-2.2) - Current Medications Current Medications: Current Medications Generic Name Dose Route Start Last Admin Trade Name Freq PRN Reason Stop Dose Admin Acetaminophen 1,000 mg 09/29/23 15:00 09/30/23 09:01 Acetaminophen 500 Mg Tablet PO 1,000 mg Q6H ALEX Administration Alcohol 1 amp 09/29/23 21:00 09/30/23 09:01 Ethyl Alcohol 62% Swab Ampule RONALD 1 amp BID ALEX Administration Aspirin 81 mg 09/30/23 09:00 09/30/23 09:03 Aspirin Ec 81 Mg Tablet PO 81 mg BID ALEX Administration Atorvastatin Calcium 10 mg 09/30/23 09:00 09/30/23 09:03 Atorvastatin 10 Mg Tablet PO 10 mg DAILY ALEX Administration Bupropion HCl 300 mg 09/30/23 09:00 09/30/23 09:01 Bupropion Xl 150 Mg Tablet PO 300 mg DAILY ALEX Administration Celecoxib 200 mg 09/29/23 21:00 09/30/23 09:01 Celecoxib 100 Mg Capsule PO 200 mg BID ALEX Administration Cholecalciferol 5,000 unit 09/30/23 09:00 09/30/23 09:02 Cholecalciferol 5,000 Unit Capsule PO 5,000 unit DAILY ALEX Administration Fentanyl 25 mcg 09/29/23 14:09 09/30/23 05:40 Fentanyl 250 Mcg/5 Ml Vial IVP 25 mcg Q2HR PRN Administration Severe Breakthrough pain(8-10) Potassium Chloride/Sodium Chloride 1,000 mls @ 75 mls/hr 09/29/23 15:00 09/30/23 06:31 Normal Saline 0.9% W/20 Meq Kcl IV 75 mls/hr .[id number] ALEX Administration Cefazolin Sodium 2 gm/ Sodium 100 mls @ 200 mls/hr 09/29/23 16:00 09/30/23 07:50 Chloride IV 200 mls/hr Q8H ALEX Administration Oxycodone HCl 5 mg 09/29/23 14:09 09/30/23 04:24 Oxycodone 5 Mg Tablet PO 5 mg Q6HR PRN Administration Severe Breakthrough pain(8-10) Rifampin 300 mg 09/29/23 21:00 09/30/23 09:00 Rifampin 150 Mg Capsule PO 300 mg BID ALEX Administration Sodium Chloride 10 ml 09/29/23 17:00 09/30/23 09:03 Sodium Chloride Flush 0.9% 10 Ml Syringe IVP 10 ml 0100,0900,1700 ALEX Administration Tramadol HCl 50 mg 09/29/23 18:00 09/30/23 05:48 Tramadol 50 Mg Tablet PO 50 mg Q6HR ALEX Administration - Physical Exam Comments/Other: alert, oriented, laying in bed Neurovascular intact to left lower extremity Dressing is dry and intact with [place] bandage from the mid left thigh to just proximal to the left ankle ABX Reporting Has patient been on IV antibiotics over the past 48 hours?: Yes Impression/Plan - Problem List Problem List: 58 year old male is post operative day 1 from DAIR procedure of left knee arthroplasty by Dr. Botello on 09/30/23 secondary to infection. He continues on IV antibiotics and is awaiting physical therapy evaluation today. He is awaiting coordination of outpatient IV antibiotics prior to discharge. Cultures from DAIR procedure yesterday show growth of Staphylococcus aureus which is oxacillin sensitive. Continue plan with Ancef and rifampin for 6 weeks of anticipated antibiotics. His hemoglobin is 8.1 today with slight tachycardia. He is afebrile. Around noon today, nurse called orthopedic surgeon stating dressing was soaking through. Dressing was changed by Dr. Botello and myself today at bedside. Dressing to remain in place and managed by Orthopedics. Serosanguineous drainage evident in web roll and [place] bandage without pustular drainage. Incision is well approximated, intact without dehiscence or erythema. Decreased effusion of left knee compared to preoperative assessment. Left knee is erythematous and warm. Plan: - DVT prophylaxis with 81 mg of aspirin twice daily for 6 weeks, SCDs in hospital - Physical and occupational therapy evaluation today - Pain control with scheduled tylenol, celebrex, tramadol and oxycodone and IV fentanyl as needed - Weight bearing as tolerated with front wheeled walker at all times - Orthopedic surgery will change dressing as needed - Bowel regimen as needed - Normal diet - Resume home medications - IV ancef 2 grams every 8 hours for 6 weeks - 300 mg rifampin by mouth twice daily for 6 weeks - Coordination with IV infusion solutions given anticipated need for IV antibiotics for at least 4-6 weeks post operatively -Daily CBC until hemoglobin is stable
[2023-09-30] MEDS: LIDOCAINE PATCH 5% TOP PRN (16:43)
[2023-09-30] MEDS: GABAPENTIN 300 MG CAPSULE PO PRN (21:25)
[2023-10-01] MEDS: traMADol 50 MG TABLET PO SCH ×5 (00:12→23:06)
[2023-10-01] MEDS: ceFAZolin (2G) 2 GM in SODIUM CHLORIDE 0.9% MINIBAG 100 ML IV SCH ×4 (00:25→23:37)
[2023-10-01] MEDS: SODIUM CHLORIDE FLUSH 0.9% 10 ML SYRINGE IVP SCH ×4 (00:25→23:37)
[2023-10-01] MEDS: GABAPENTIN 300 MG CAPSULE PO PRN ×2 (01:25→09:19)
[2023-10-01] MEDS: ACETAMINOPHEN 500 MG TABLET PO SCH ×4 (03:01→21:24)
[2023-10-01 05:38] LABS: BASOPHILS % (AUTO) 0.4 %; EOSINOPHILS # (AUTO) 0.1 10^3/uL (0.0-0.7); EOSINOPHILS % (AUTO) 0.8 %; HCT - HEMATOCRIT 25.7 % (42.0-52.0); HGB - HEMOGLOBIN 8.3 g/dL (14.0-18.0); LYMPHOCYTES # (AUTO) 1.4 10^3/uL (1.5-3.5); LYMPHOCYTES % (AUTO) 13.5 %; MEAN CORPUSCULAR HEMOGLOBIN 31.3 pg (27.0-31.0); MEAN CORPUSCULAR HGB CONC 32.3 g/dL (32.0-36.0); MEAN PLATELET VOLUME 8.7 fL (7.4-11.4); MONOCYTES # (AUTO) 1.4 10^3/uL (0.0-1.0); MONOCYTES % (AUTO) 13.7 %; NEUTROPHILS # (AUTO) 7.4 10^3/uL (1.5-6.6); NEUTROPHILS % (AUTO) 70.7 %; PLT - PLATELET COUNT 332 10^3/uL (130-450); RED BLOOD COUNT 2.65 10^6/uL (4.70-6.10); RED CELL DISTRIBUTION WIDTH 14.6 % (12.0-15.0); WHITE BLOOD COUNT 10.5 x10^3/uL (4.8-10.8)
[2023-10-01] MEDS: oxyCODONE 5 MG TABLET PO PRN (06:46)
[2023-10-01] MEDS: NS W/20 MEQ KCL 1,000 ML IV SCH (06:49)
[2023-10-01] MEDS: LIDOCAINE PATCH 5% TOP PRN (07:06)
[2023-10-01] MEDS: ATORVASTATIN 10 MG TABLET PO SCH (09:06)
[2023-10-01] MEDS: rifAMPin 150 MG CAPSULE PO SCH ×2 (09:06→21:23)
[2023-10-01] MEDS: ethyl alcohoL 62% SWAB AMPULE NAS SCH ×2 (09:06→21:25)
[2023-10-01] MEDS: CHOLECALCIFEROL 5,000 UNIT CAPSULE PO SCH (09:06)
[2023-10-01] MEDS: CELECOXIB 100 MG CAPSULE PO SCH (09:06)
[2023-10-01] MEDS: ASPIRIN EC 81 MG TABLET PO SCH ×2 (09:06→21:23)
[2023-10-01] MEDS: buPROPion XL 150 MG TABLET PO SCH (09:06)
--- NOTE | 2023-10-01 09:44 | PROVIDER PROGRESS NOTE ---
Subjective - General Admit Date: 09/29/23 Procedure Date: 09/29/23 Post Op Days: 2 Procedure Performed: DAIR Procedure of left knee arthroplasty - Other Other Information/Narrative: The patient reports considerable localized back pain. His back pain is localized to the lumbar spine without radiation or neurologic symptoms. His back pain started when he twisted his back coming into the hospital. He has had episodes of back pain before and the pain usually resolves spontaneously. He states his knee pain is under good control and is not bothering him. His back pain is what is limiting his ability to move, sit, get out of bed and walk. He denies chest pain, shortness of breath, nausea or vomiting. He can take a deep breath without pain. Objective - Patient Data Vital Signs: Vital Signs x48h Temp Pulse Resp BP Pulse Ox 10/01/23 07:53 37.5 C 103 H 20 144/71 H 91 L 10/01/23 04:20 37.6 C 106 H 20 153/75 H 92 Weight: Weight 09/29/23 09/30/23 10/01/23 23:59 23:59 23:59 Weight (kg) 102.06 kg Intake & Output: Intake and Output Totals x24h 09/29/23 09/30/23 10/01/23 23:59 23:59 23:59 Intake Total 1403.75 6141.25 400 Output Total 1150 4255 1850 Balance 253.75 1886.25 -1450 - Lab Results Lab Results: 10/01/23 04:58 09/29/23 10:50 Other Lab Results: Lab Results x24hrs 10/01/23 Range/Units 04:58 WBC 10.5 (4.8-10.8) x10^3/uL RBC 2.65 L (4.70-6.10) 10^6/uL Hgb 8.3 L (14.0-18.0) g/dL Hct 25.7 L (42.0-52.0) % MCV 97.0 H (80.0-94.0) fL MCH 31.3 H (27.0-31.0) pg MCHC 32.3 (32.0-36.0) g/dL RDW 14.6 (12.0-15.0) % Plt Count 332 (130-450) 10^3/uL MPV 8.7 (7.4-11.4) fL Neut # (Auto) 7.4 H (1.5-6.6) 10^3/uL Lymph # (Auto) 1.4 L (1.5-3.5) 10^3/uL [place] # (Auto) 1.4 H (0.0-1.0) 10^3/uL Eos # (Auto) 0.1 (0.0-0.7) 10^3/uL Baso # (Auto) 0.0 (0.0-0.1) 10^3/uL Absolute Nucleated RBC 0.00 x10^3/uL Nucleated RBC % 0.0 /100WBC - Current Medications Current Medications: Current Medications Generic Name Dose Route Start Last Admin Trade Name Freq PRN Reason Stop Dose Admin Acetaminophen 1,000 mg 09/29/23 15:00 10/01/23 09:12 Acetaminophen 500 Mg Tablet PO 1,000 mg Q6H ALEX Administration Alcohol 1 amp 09/29/23 21:00 10/01/23 09:06 Ethyl Alcohol 62% Swab Ampule RONALD 1 amp BID ALEX Administration Aspirin 81 mg 09/30/23 09:00 10/01/23 09:06 Aspirin Ec 81 Mg Tablet PO 81 mg BID ALEX Administration Atorvastatin Calcium 10 mg 09/30/23 09:00 10/01/23 09:06 Atorvastatin 10 Mg Tablet PO 10 mg DAILY ALEX Administration Bupropion HCl 300 mg 09/30/23 09:00 10/01/23 09:06 Bupropion Xl 150 Mg Tablet PO 300 mg DAILY ALEX Administration Celecoxib 200 mg 09/29/23 21:00 10/01/23 09:06 Celecoxib 100 Mg Capsule PO 200 mg BID ALEX Administration Cholecalciferol 5,000 unit 09/30/23 09:00 10/01/23 09:06 Cholecalciferol 5,000 Unit Capsule PO 5,000 unit DAILY ALEX Administration Fentanyl 25 mcg 09/29/23 14:09 09/30/23 10:27 Fentanyl 250 Mcg/5 Ml Vial IVP 25 mcg Q2HR PRN Administration Severe Breakthrough pain(8-10) Potassium Chloride/Sodium Chloride 1,000 mls @ 75 mls/hr 09/29/23 15:00 10/01/23 06:49 Normal Saline 0.9% W/20 Meq Kcl IV 75 mls/hr .[id number] ALEX Administration Cefazolin Sodium 2 gm/ Sodium 100 mls @ 200 mls/hr 09/29/23 16:00 10/01/23 09:06 Chloride IV 200 mls/hr Q8H ALEX Administration Lidocaine 1 patch 09/30/23 16:33 10/01/23 07:06 Lidocaine Patch 5% TOP 1 patch DAILY PRN Administration Moderate Pain (Level 4-6) Rifampin 300 mg 09/29/23 21:00 10/01/23 09:06 Rifampin 150 Mg Capsule PO 300 mg BID ALEX Administration Sodium Chloride 10 ml 09/29/23 17:00 10/01/23 00:25 Sodium Chloride Flush 0.9% 10 Ml Syringe IVP 10 ml 0100,0900,1700 ALEX Administration Tramadol HCl 50 mg 09/29/23 18:00 10/01/23 05:55 Tramadol 50 Mg Tablet PO 50 mg Q6HR ALEX Administration - Physical Exam Comments/Other: The left knee dressing is dry and intact. Neurovascular is intact to left leg. He can take a deep inspiration without any pain. He has no tenderness to percussion over thoracic spine but does have a localized tenderness about L3 to percussion of the lumbar spine. There is no paravertebral muscle spasm. There is no neurologic deficit to lower extremities. He can move his neck well without any pain. Impression/Plan - Problem List Problem List: 1. Acute periprosthetic infection left knee The infection has been documented by multiple positive cultures consistent with Staph aureus, sensitive to oxacillin. He is currently on 2 g of Ancef intravenously every 8 hours and rifampin 300 mg twice daily. This regimen should be continued as outpatient for approximately 6 weeks through his PICC line. He seems to be responding to treatment. 2. Acute low back pain Multimodal pain management is being utilized. Orders for thoracic and lumbar spine x-ray has been ordered. He is on deep venous thrombosis prophylaxis with aspirin 81 mg twice daily and sequential compression device to lower extremity
--- NOTE | 2023-10-01 10:39 | XRAY Report ---
PROCEDURE: Thoracic Spine 2 View INDICATIONS: Pain TECHNIQUE: 2 views of the thoracic spine were acquired. COMPARISON: None. FINDINGS: Bones: No fractures or dislocations. No suspicious bony lesions. 12 pairs of ribs are noted, and a ppear intact where visualized. Soft tissues: No paravertebral stripe thickening. Question mild interstitial pulmonary edema. IMPRESSION: 1. No acute bony abnormality. No significant degenerative change. 2. Question mild interstitial pulmonary edema. Suggest clinical correlation. Reviewed by: Oniel Nava MD on 10/01/2023 10:38 AM PDT Approved by: Oniel Nava MD on 10/01/2023 10:38 AM PDT Station ID: [id number]
--- NOTE | 2023-10-01 11:02 | DISCHARGE SUMMARY ---
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 On Wednesday09/24/2023, patient Was reportedly working with physical therapy when he noticed an increase in pain, erythema and effusion about the left knee. He had pain with range of motion and decreased flexion of the left knee. He denies drainage, fever or chills. Over the next 2 days, swelling and pain worsened leading him to seek care in the emergency department on 09/26/2023 and followed up with orthopedic surgeon Dr. Botello on 09/27/2023. In the office, an arthrocentesis was performed in which 100 cc of turbid blood tinged fluid was collected and sent for culture and sensitivity. A leukocyte Estrace test in the office was positive. The arthrocentesis showed a white blood cell count greater than 71,000 with 90% neutrophils. Gram stain showed many white blood cell and cultures showed Staphylococcus aureus that was oxacillin sensitive. Patient was then consented for planned DAIR procedure of left total knee arthroplasty leading to admission for IV antibiotics. - CONSULTS | PROCEDURES Procedures: DAIR procedure of left total knee arthroplasty PICC line placement by anesthesia Lumbar spine x-ray Thoracic spine x-ray Lumbar spine MRI - HOSPITAL COURSE Hospital Course: on 09/29/2023, the patient was admitted to [facility] following planned Derra procedure with PICC line placement. On postoperative day 0, patient reported improved pain. At time of mission, the patient reported lumbar back pain that started prior to arrival to hospital which she believed was secondary to muscle spasm which is a chronic issue for this patient. On postoperative day 1, his dressing was soaked through and changed by orthopedics. His pain was poorly controlled and medications were titrated to achieve better pain control. He was restarted on all of his home medications. On postoperative day 2, the patient reported an increase in back pain that was now constant in nature and sharp. Again, medications were titrated with the addition of gabapentin and lorazepam as needed for reported increased anxiety. Thoracic and lumbar spine x-rays were obtained on postoperative day 2 which did not show infection of the vertebrae. An MRI was obtained of the lumbar spine on postoperative day 2 which showed no evidence of infection. discharge planning was coordinated with IV infusion solutions for outpatient Ancef IV every 8 hours to be completed for an anticipated 6 weeks as well as oral rifampin 300 mg twice a day to treat prosthetic joint infection. On postoperative day 3, - ALLERGIES Allergies/Adverse Reactions: Allergies Allergy/AdvReac Type Severity Reaction Status Date / Time metoprolol Allergy Unknown Verified 09/29/23 14:27 - MEDICATIONS Home Medications: Ambulatory Orders Medication Instructions Recorded Confirmed Diclofenac Sodium 1% Gel [Voltaren 1 applic TOP DAILY 09/27/23 09/29/23 Gel] buPROPion HCL [Wellbutrin Xl] 300 mg PO DAILY 09/27/23 09/29/23 Atorvastatin [Lipitor] 10 mg ORAL DAILY 09/29/23 09/29/23 Cholecalciferol [Vitamin D3] 5,000 unit PO DAILY 09/29/23 09/29/23 - LABS Result Diagrams: 10/01/23 04:58 09/29/23 10:50 - [facility] days of discharge Primary care provider at [place] with in 2 weeks of discharge"
--- NOTE | 2023-10-01 11:24 | Discharge Plan ---
Discharge Plan Problem Reviewed?: Yes Disposition: Home, Self Care Condition: Stable Diet: Regular Activity Restrictions: Wt Bearing as Tolerated Shower Restrictions: Yes (Cover dressing if showering, sponge bath until dressing has been changed) Driving Restrictions: Yes (No driving until Orthopedic follow up) Assistance Devices: Walker Weight Bearing: Other (as tolerated) Health Concerns: You were admitted to [facility] due to an infection of your left total knee arthroplasty and need for PICC line placement and IV antibiotics. Plan of Treatment: you underwent an uncomplicated DAIR procedure of your left total knee arthroplasty secondary to infection with Staphylococcus aureus that is oxacillin sensitive. A PICC line was placed to administer your IV antibiotics. Your pain was controlled with oral and IV pain medications and you received all of your home medications while in the hospital. You experience significant back pain requiring evaluation with lumbar and thoracic x-rays as well as an MRI which did not show evidence of infection of the spine. Care Goals: Return to independent ambulation as per baseline with use of front wheel walker and weightbearing as tolerated secondary to surgery. Assessment: I discussed treatment plan with the patient who verbalizes understanding of the treatment plan in hospital and necessary follow-up. Written instructions were provided as a reminder. Additional Instructions or Follow Up instructions: Follow-up with [facility] orthopedics on 10/04/23 at 845am. It is also recommended you follow-up with your primary care provider at the [facility] within 2 weeks of discharge You are weightbearing as tolerated with front wheeled walker at all times until your mobilization improves Please resume all of your home medications You will require IV Ancef 2 mg every 8 hours via infusion for 6 weeks You will require 300 mg of rifampin by mouth twice a day (every 12 hours) for 6 weeks You need to take aspirin 81 mg twice a day (every 12 hours) for 6 weeks to prevent blood clots You will take ibuprofen 600 mg every 6 hours by mouth for pain control as well as Tylenol 975 mg every 6 hours by mouth for pain control You were prescribed tramadol 50 mg to be taken every 6 hours by mouth for pain control as well as 5 mg of oxycodone to be taken by mouth every 6 hours as needed for pain control. Please refer to your pain medication schedule provided in your total joint Booklet and call the office with any questions or concerns if you have any chest pain or trouble breathing, please seek care in the emergency department immediately due to concern for blood clots in your lungs You have a dressing in place on your surgical wound that needs to remain dry and intact until follow-up. Please use sponge baths until the dressing has been evaluated by your surgeon If you notice new or worsening symptoms please call the orthopedic office at [phone]. Examples of the symptoms include fever, chills, redness or drainage from your wound. If it is after normal clinic hours please seek care in the emergency department No Smoking: If you smoke, Please STOP! Call for help.
[2023-10-01] MEDS: oxyCODONE 5 MG TABLET PO SCH ×3 (11:28→23:06)
--- NOTE | 2023-10-01 11:34 | XRAY Report ---
PROCEDURE: Lumbar Spine 2 View INDICATIONS: pain TECHNIQUE: 3 view(s) of the lumbar spine were acquired. COMPARISON: None. FINDINGS: Bones: Vertebral body height and alignment is maintained. No suspicious bony lesions. Mild degenerat niharika disc space narrowing and hypertrophic facet joints noted lower lumbar spine Soft tissues: Overlying bowel gas pattern is normal. Atherosclerotic calcification of the abdominal aorta without evidence of aneurysm. . 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 No lytic lesion Reviewed by: Everett Johnson MD on 10/01/2023 10:33 AM [facility] Approved by: Everett Johnson MD on 10/01/2023 10:33 AM AKVINH Station ID: [id number]
[2023-10-01] MEDS ORDERED: oxyCODONE 5 MG TABLET PO SCH (12:00)
[2023-10-01] MEDS ORDERED: fentaNYL 250 MCG/5 ML VIAL IVP PRN ×2 (13:31→17:01)
--- NOTE | 2023-10-01 13:35 | CONSULTATION NOTE ---
Referring Provider Name of Referring Provider:: Dr Botello Consult Date: 10/01/23 Chief Complaint - Chief Complaint Chief Complaint: Diarrhea, feels dry mouth & no appetite, has severe LBP History of Present Illness - History Obtained From History obtained from: Chart review, Dr Botello and the patient - History of Present Illness HPI Comment/Other: This is a 58-year-old male with a remote history of alcohol abuse and smoking. He underwent left knee replacement several weeks ago. Subsequently he developed redness, swelling and tenderness of the left knee. Fluid obtained from the swollen knee has grown Staph aureus, sensitive to oxacillin. Before being admitted for management of the knee infection and a redo knee surgery, the patient feels that he "sprained his back" and has had severe low back pain for the past 1 week. There is no saddle anesthesia. Narcotics and gabapentin are somewhat controlling that pain. He has needed Gabapentin in the past to treat arthritis and also for anxiety; Used to take 3 tablets 3 times daily but currently is on 2 tablets twice daily. The patient is on IV antibiotics and oral rifampicin and plan is to have a 6-week course of antibiotics. He was to be potentially discharged today, but he has had 3 or 4 liquidy diarrhea BMs without cramping or bleeding, and the Orthopedic surgeon called me on the Hospitalist team for a consult. For the past few days the pt has no appetite and feels dry mouth. His low back pain has not improved do today, he underwent x-rays of the thoracic and lumbar spine, which showed no abnormalities. An MRI of the LS spine is pending today. History - Past Medical History Cardiovascular: reports: Atrial fibrillation (remotely and briefly) Respiratory: reports: None Neuro: reports: None Endocrine/Autoimmune: reports: None GI: reports: None : reports: None HEENT: reports: Chronic vision loss, Other Psych: reports: Anxiety Musculoskeletal: reports: Osteoarthritis Derm: reports: None MRSA Hx?: No Other Past Medical History: quit tobacco ~2 months ago - Past Surgical History General: reports: Appendectomy, Colonoscopy Ortho: reports: Knee replacement - Family & Social History Living arrangement: At home Living Situation: With spouse/s.o. - Substance History Use: Uses substance without health or social issues: NONE Meds/Allgy - Home Medications Home Medications: Ambulatory Orders Medication Instructions Recorded Confirmed Diclofenac Sodium 1% Gel [Voltaren 1 applic TOP DAILY 09/27/23 09/29/23 Gel] buPROPion HCL [Wellbutrin Xl] 300 mg PO DAILY 09/27/23 09/29/23 Atorvastatin [Lipitor] 10 mg ORAL DAILY 09/29/23 09/29/23 Cholecalciferol [Vitamin D3] 5,000 unit PO DAILY 09/29/23 09/29/23 - Allergies Allergies/Adverse Reactions: Allergies Allergy/AdvReac Type Severity Reaction Status Date / Time metoprolol Allergy Unknown Verified 09/29/23 14:27 Exam - Vital Signs Vital Signs: Vital Signs x48h Temp Pulse Resp BP Pulse Ox 10/01/23 07:53 37.5 C 103 H 20 144/71 H 91 L - Physical Exam General Appearance: positive: Mild distress (from LBP, he is laying partially on his side to releave LBP), Other (Poorly kempt, missing front tooth.) Eyes Bilateral: positive: Normal inspection, EOMI ENT: positive: Dry mucous membranes Neck: positive: Nml inspection Respiratory: positive: No respiratory distress, Breath sounds nml Cardiovascular: positive: Regular rate & rhythm, No murmur Abdomen: positive: Non-tender, Other (Mildly distended, non-tender, diminished bowel sounds) Skin: positive: Warm, Dry, Other (Tenderness of low back) Extremities: positive: No pedal edema, Other (L knee in FEMI wrap) Neurologic/Psychiatric: positive: Oriented x3, Motor nml, Sensation nml Conclusion/Plan - Problem List (1) Diarrhea Conclusion/Plan: A stool sample was sent stat for C. difficile and has returned negative This is most likely diarrhea from antibiotics since it just began today, about 3 to 4 days after institution of broad-spectrum antibiotics Plan: Begin Imodium as needed for diarrhea and can also give bulk agents Begin probiotics in the form of lactulose or Florastor. De-escalate his regular, solid diet to an easily digestible BRAT diet then advance as tolerated Obtain electrolytes to evaluate for potassium and magnesium losses given the significant amount of bowel movements he describes having Start gentle IV hydration given the findings of dry mouth and clinically appearing dehydrated. I will order these. (2) Low back pain Conclusion/Plan: Patient reports that this began when he twisted his back abnormally and that he gets this occasionally and has a history of arthritis The concern is that with an ongoing infection, if there is an area that remains tender near his spine, this may be another localized infection as well, such as an abscess Plan: Agree with evaluating for an abscess by getting a spine MRI Cont with medications for pain control, using scheduled NSAIDs and prn Tylenol and narcotics. Use heat packs for muscle spasm relief. His gabapentin twice daily may be increased to 3 times daily I will order these (3) Infection of total left knee replacement Conclusion/Plan: Plan: Continue with management with IV antibiotics, oral antibiotics and pain control as you are doing I will follow along on this patient with you Thank you for allowing me to participate in the care of this patient. - Lab Results Lab results reviewed: Yes Fish Bones: 10/01/23 04:58 09/29/23 10:50
[2023-10-01] MEDS ORDERED: GADOTERATE MEGLUMINE 10 MMOL/20 ML VIAL ONE (14:44)
[2023-10-01] MEDS ORDERED: GADOTERATE MEGLUMINE 5 MMOL/10 ML VIAL ONE (14:44)
[2023-10-01] MEDS ORDERED: LOPERAMIDE 2 MG CAPSULE PO PRN (16:31)
[2023-10-01] MEDS ORDERED: CELECOXIB 100 MG CAPSULE PO SCH (17:00)
[2023-10-01] MEDS ORDERED: SACCHAROMYCES BOULARDII 250 MG CAPSULE PO SCH (17:00)
[2023-10-01] MEDS: LORazepam 2 MG/ML VIAL IVP PRN (17:31)
[2023-10-01 17:42] LABS: CALCIUM 8.2 mg/dL (8.5-10.3); CREATININE 0.7 mg/dL (0.6-1.3); POTASSIUM 3.4 mmol/L (3.5-4.5)
[2023-10-01] MEDS ORDERED: GADOTERATE MEGLUMINE 10 MMOL/20 ML VIAL IVP ONE (18:11)
--- NOTE | 2023-10-01 19:42 | MRI Report ---
PROCEDURE: LUMBAR SPINE W/WO INDICATIONS: Exclude abscess and osteomyelitis in PJI CONTRAST: CLARISCAN 20.4 TECHNIQUE: Noncontrast sagittal T1 spin echo and T2 fast spin echo, sagittal STIR, axial T1 and T2 fast spin ech o through the lumbar spine. In cases with scoliosis, additional coronal T2 fast spin echo may be per formed. After the administration of contrast, sagittal and axial T1 spin echo with fat saturation th rough the lumbar spine. COMPARISON: None. FINDINGS: Image quality: Decreased due to motion. Alignment and curvature: There is normal bony alignment. Marrow: Marrow is of normal overall signal. No acute vertebral body compression fractures. No susp icious marrow enhancement. There is moderate facet arthropathy at multiple levels, particularly on t he right at L4-5 where there is mild periarticular enhancement. Central canal: The conus terminates at the L1 level. Beginning at the L2-3 level there is a ventral epidural T2 hyperintense fluid collection elevating the posterior longitudinal ligament. No definite intrinsic enhancement. There is deformation of the spinal canal beginning at the L3 level and severe most spinal stenosis at the L4 and L4-5 level. This extends to the L5-S1 disc space. Paraspinous soft tissues: No paravertebral masses or abnormal enhancement. IMPRESSION: 1. There is anterior epidural fluid collection extending from L3 through L5 suspicious for hematoma c ausing severe central canal stenosis at L4-5. Differential diagnosis includes abscess. 2. No evidence of discitis or osteomyelitis. 3. Discussed with Dr. Botello at 1930 hours. Reviewed by: Jaz Zelaya MD on 10/01/2023 7:41 PM PDT Approved by: Jaz Zelaya MD on 10/01/2023 7:41 PM PDT Station ID: [id number]
[2023-10-01] MEDS ORDERED: GABAPENTIN 300 MG CAPSULE PO SCH ×2 (21:00→22:00)
--- NOTE | 2023-10-01 21:42 | PROVIDER PROGRESS NOTE ---
Subjective - General Admit Date: 09/29/23 Procedure Date: 09/29/23 Post Op Days: 2 Procedure Performed: DAIR Procedure of left knee arthroplasty - Other Other Information/Narrative: The patient reports mid lumbar spine pain as his primary issue. His left knee pain is under very good control. He has been primarily at bedrest today because of his back pain. He did have some episodes of diarrhea earlier today. A hospitalist consult was obtained as well today.He denies any abdominal pain or chest pain. . He denies fever or chills.His back pain is well localized to his lumbar spine. It has worsened since admission but did start just slightly before his surgery, the night before. When he came in to surgery on Wednesday he did have some back pain when he turned and twisted. Now the back pain is fairly constant even at bedrest and without moving. He denies numbness or tingling to his lower extremities. He can move his extremities well. He is passing his urine well and he did have bowel movements earlier today. The heating pad does seem to help.He denies fever or chills. Objective - Patient Data Vital Signs: Vital Signs x48h Temp Pulse Pulse Resp BP Pulse Ox 10/01/23 20:25 37.9 C 107 H 42 H 151/72 H 89 L 10/01/23 16:48 37.2 C 110 H 24 158/71 H 91 L 10/01/23 13:42 106 H 19 142/63 H 96 Weight: Weight 09/29/23 09/30/23 10/01/23 23:59 23:59 23:59 Weight (kg) 102.06 kg 102.06 kg Intake & Output: Intake and Output Totals x24h 09/29/23 09/30/23 10/01/23 23:59 23:59 23:59 Intake Total 1403.75 6141.25 1400 Output Total 1150 4255 3770 Balance 253.75 1886.25 -2370 - Lab Results Lab Results: 10/01/23 04:58 10/01/23 17:13 Other Lab Results: Lab Results x24hrs 10/01/23 10/01/23 10/01/23 Range/Units 17:13 13:52 09:58 WBC (4.8-10.8) x10^3/uL RBC (4.70-6.10) 10^6/uL Hgb (14.0-18.0) g/dL Hct (42.0-52.0) % MCV (80.0-94.0) fL MCH (27.0-31.0) pg MCHC (32.0-36.0) g/dL RDW (12.0-15.0) % Plt Count (130-450) 10^3/uL MPV (7.4-11.4) fL Neut # (Auto) (1.5-6.6) 10^3/uL Lymph # (Auto) (1.5-3.5) 10^3/uL Adams # (Auto) (0.0-1.0) 10^3/uL Eos # (Auto) (0.0-0.7) 10^3/uL Baso # (Auto) (0.0-0.1) 10^3/uL Absolute Nucleated RBC x10^3/uL Nucleated RBC % /100WBC ESR > 140 H (0-20) mm/Hr Sodium 134 L (135-145) mmol/L Potassium 3.4 L (3.5-4.5) mmol/L Chloride 101 (101-111) mmol/L Carbon Dioxide 24 (21-32) mmol/L Anion Gap 9.0 (6-13) BUN 12 (6-20) mg/dL Creatinine 0.7 (0.6-1.3) mg/dL Estimated GFR (MDRD) 116 (>89) Glucose 102 (74-104) mg/dL Calcium 8.2 L (8.5-10.3) mg/dL Stl C. diff Tox B Gene NEGATIVE (NEGATIVE) 10/01/23 Range/Units 04:58 WBC 10.5 (4.8-10.8) x10^3/uL RBC 2.65 L (4.70-6.10) 10^6/uL Hgb 8.3 L (14.0-18.0) g/dL Hct 25.7 L (42.0-52.0) % MCV 97.0 H (80.0-94.0) fL MCH 31.3 H (27.0-31.0) pg MCHC 32.3 (32.0-36.0) g/dL RDW 14.6 (12.0-15.0) % Plt Count 332 (130-450) 10^3/uL MPV 8.7 (7.4-11.4) fL Neut # (Auto) 7.4 H (1.5-6.6) 10^3/uL Lymph # (Auto) 1.4 L (1.5-3.5) 10^3/uL Adams # (Auto) 1.4 H (0.0-1.0) 10^3/uL Eos # (Auto) 0.1 (0.0-0.7) 10^3/uL Baso # (Auto) 0.0 (0.0-0.1) 10^3/uL Absolute Nucleated RBC 0.00 x10^3/uL Nucleated RBC % 0.0 /100WBC ESR (0-20) mm/Hr Sodium (135-145) mmol/L Potassium (3.5-4.5) mmol/L Chloride (101-111) mmol/L Carbon Dioxide (21-32) mmol/L Anion Gap (6-13) BUN (6-20) mg/dL Creatinine (0.6-1.3) mg/dL Estimated GFR (MDRD) (>89) Glucose (74-104) mg/dL Calcium (8.5-10.3) mg/dL Stl C. diff Tox B Gene (NEGATIVE) - Imaging Results Radiology Imaging: positive: See rad report (MRI scan of lumbar spine is suggestive of an epidural hematoma at about L3-L5. This is superimposed upon lumbar spinal stenosis) - Current Medications Current Medications: Current Medications Generic Name Dose Route Start Last Admin Trade Name Tere PRN Reason Stop Dose Admin Acetaminophen 1,000 mg 09/29/23 15:00 10/01/23 21:24 Acetaminophen 500 Mg Tablet PO Not Given Q6H ALEX Alcohol 1 amp 09/29/23 21:00 10/01/23 21:25 Ethyl Alcohol 62% Swab Ampule RONALD 1 amp BID ALEX Administration Aspirin 81 mg 09/30/23 09:00 10/01/23 21:23 Aspirin Ec 81 Mg Tablet PO 81 mg BID ALEX Administration Bupropion HCl 300 mg 09/30/23 09:00 10/01/23 09:06 Bupropion Xl 150 Mg Tablet PO 300 mg DAILY ALEX Administration Celecoxib 200 mg 10/01/23 17:00 10/01/23 17:10 Celecoxib 100 Mg Capsule PO 200 mg BIDWM ALEX Administration Cholecalciferol 5,000 unit 09/30/23 09:00 10/01/23 09:06 Cholecalciferol 5,000 Unit Capsule PO 5,000 unit DAILY ALEX Administration Gabapentin 900 mg 10/01/23 22:00 10/01/23 21:23 Gabapentin 300 Mg Capsule PO 900 mg TID ALEX Administration Cefazolin Sodium 2 gm/ Sodium 100 mls @ 200 mls/hr 09/29/23 16:00 10/01/23 18:41 Chloride IV Infused Q8H ALEX Infusion Lidocaine 1 patch 09/30/23 16:33 10/01/23 07:06 Lidocaine Patch 5% TOP 1 patch DAILY PRN Administration Moderate Pain (Level 4-6) Lorazepam 0.5 mg 10/01/23 09:38 10/01/23 17:31 Lorazepam 2 Mg/Ml Vial IVP 0.5 mg Q6H PRN Administration Anxiety Oxycodone HCl 5 mg 10/01/23 12:00 10/01/23 18:40 Oxycodone 5 Mg Tablet PO 5 mg Q6HR ALEX Administration Rifampin 300 mg 09/29/23 21:00 10/01/23 21:23 Rifampin 150 Mg Capsule PO 300 mg BID ALEX Administration Saccharomyces Boulardii 250 mg 10/01/23 17:00 10/01/23 17:10 Saccharomyces Boulardii 250 Mg Capsule PO 250 mg BIDWM ALEX Administration Sodium Chloride 10 ml 09/29/23 17:00 10/01/23 16:14 Sodium Chloride Flush 0.9% 10 Ml Syringe IVP 10 ml 0100,0900,1700 ALEX Administration Tramadol HCl 50 mg 09/29/23 18:00 10/01/23 18:41 Tramadol 50 Mg Tablet PO 50 mg Q6HR ALEX Administration - Physical Exam Wound/Incisions: positive: Dressing dry and intact Neurologic/Psychiatric: positive: Oriented x3, Motor nml, Sensation nml, Mood/affect nml Comments/Other: The patient is not having any acute respiratory distress. He is alert and fully oriented. He is talking comfortably. His back exam remains unchanged from this morning, localized tenderness to the mid lumbar spine without muscle spasm. Th ere is a small area, perhaps about a centimeter of ecchymosis over the midline lumbar spine at about L4. There is no fluctuance or mass present to lumbar spine. The patient has intact sphincter control, no peripheral nerve deficit on exam to lower extremities. The left knee dressing is dry and intact. Impression/Plan - Problem List Problem List: 1. Periprosthetic infection that seems to be improving to left knee He has been on Ancef intravenous antibiotics ever since admission to the hospital, cultures positive for Staph aureus, sensitive to oxacillin. He is also on rifampin 300 mg twice daily. 2. Spinal epidural hematoma, lumbar spine and lumbar spinal stenosis Patient does have a history of intermittent low back pain in the past, similar episodes like this in the past usually resolve within a week. However, MRI scan report is concerning and I have put a call into [facility] neurosurgical service for further input. He was on aspirin 81 mg prior to surgery; this was stopped by the patient approximately 4 days before his most recent surgery. He is currently on 81 mg of aspirin twice daily for deep venous thrombosis prophylaxis. He did have a lumbar spinal anesthetic for his most recent surgery
--- NOTE | 2023-10-01 22:46 | DISCHARGE SUMMARY ---
"Discharge Summary Discharge Date: 10/01/23 Discharging Provider: Clarke Botello MD Primary Care Provider: [place] Code Status: Attempt Resuscitation Condition at Discharge: Stable Discharge Disposition: 02 Transfer Acute Care Hosp Discharge Facility Name: [facility] - DIAGNOSES Admission Diagnoses: . Acute periprosthetic infection left knee Discharge Diagnoses with Status of Each Condition: Acute periprosthetic infection left knee: The left knee infection is improving Lumbar spine epidural mass: Hematoma versus abscess.: He has increasing localized low back pain without neurologic symptoms, MRI abnormalTo lumbar spine suggestive of a mass - HPI History of Present Illness: This is a 58-year-old man who underwent a primary left total knee replacement approximately 2 and half weeks ago. He was admitted to the hospital On 09/29/2023 with a diagnosis of acute periprosthetic left knee infection. The infection was documented with supportive lab work and microbiology showing positive culture with Staph aureus, sensitive to oxacillin. He did have some low back pain just prior to his admission on 09/29/2023. - CONSULTS | PROCEDURES Consultations: Hospitalist Procedures: Irrigation debridement left knee joint, retention of components left total knee, exchange of tibial bearing, antibiotics - HOSPITAL COURSE Hospital Course: . This procedure was performed on 09/29/2023 his left knee infection has responded well with decreasing pain, dressing dry and intact, neurovascular intact. During the course of his hospitalization he has developed increasing and well localized mid lumbar spine pain, examination with localized lumbar spine tenderness without muscle spasm or neurologic deficit. His routine x-rays of the lumbar spine and MRI scan of the lumbar spine have been obtained this evening. The radiologist has diagnosed an epidural lumbar spine hematoma from L3-L5, possible abscess. The reason for the transfer is because of the lumbar spine, not his knee. The accepting physician is Dr. Ramsey at [facility] - ALLERGIES Allergies/Adverse Reactions: Allergies Allergy/AdvReac Type Severity Reaction Status Date / Time metoprolol Allergy Unknown Verified 09/29/23 14:27 - MEDICATIONS Home Medications: Ambulatory Orders Medication Instructions Recorded Confirmed Diclofenac Sodium 1% Gel [Voltaren 1 applic TOP DAILY 09/27/23 09/29/23 Gel] buPROPion HCL [Wellbutrin Xl] 300 mg PO DAILY 09/27/23 09/29/23 Atorvastatin [Lipitor] 10 mg ORAL DAILY 09/29/23 09/29/23 Cholecalciferol [Vitamin D3] 5,000 unit PO DAILY 09/29/23 09/29/23 - PHYSICAL EXAM AT DISCHARGE General Appearance: positive: Mild distress Respiratory: positive: Chest non-tender, No respiratory distress, Breath sounds nml Peripheral Pulses: positive: 2+ Abdomen: positive: Non-tender Back: positive: Other (Tender lumbar spine) Skin: positive: Color nml Neurologic/Psychiatric: positive: Oriented x3, Motor nml, Sensation nml, Mood/affect nml - LABS Result Diagrams: 10/01/23 04:58 10/01/23 17:13 - DIAGNOSTIC IMAGING Diagnostic Imaging Results: See rad report Diagnostic Imaging Results Comments: MRI scan lumbar spine and routine radiographs lumbar spine - SEPSIS Possible source of Sepsis: Bone/Joint, Implantable device Confirmed Source and Organism (if known) of Sepsis: Acute periprosthetic infection left knee, Staph aureus, sensitive to oxacillin, currently on Ancef 2 g intravenously every 8 hours thru PICC line As well as rifampin 300 mg twice daily - QUALITY (Female Hip Fx Only) Was patient sent home on osteoporosis medication?: No (Transfer to [facility], neurosurgical service evaluation) - FOLLOW UP Follow Up: Return to orthopedics after their evaluation at [facility] - TIME SPENT Time Spent in Discharge (Minutes): 30"
--- NOTE | 2023-10-01 23:15 | Discharge Plan ---
Discharge Plan Problem Reviewed?: Yes Disposition: 02 Transfer Acute Care Hosp Condition: Stable Diet: Soft Activity Restrictions: bedrest Shower Restrictions: Yes (Cover dressing if showering, sponge bath until dressing has been changed) Driving Restrictions: Yes (No driving until Orthopedic follow up) Assistance Devices: Other (Being transferred by ambulance to [facility]) Weight Bearing: No Weight Health Concerns: You were admitted to [facility] due to an infection of your left total knee arthroplasty and need for PICC line placement and IV antibiotics. Plan of Treatment: you underwent an uncomplicated DAIR procedure of your left total knee arthroplasty secondary to infection with Staphylococcus aureus that is oxacillin sensitive. A PICC line was placed to administer your IV antibiotics. Your pain was controlled with oral and IV pain medications and you received all of your home medications while in the hospital. You experience significant back pain requiring evaluation with lumbar and thoracic x-rays as well as an MRI which did on urgent basis show evidence of a lumbar spine epidural mass suggestive of hematoma but infection in form of abscess cannot be excluded. [facility] because of the abnormality of your MR spine and and continued low back pain. Care Goals: Return to independent ambulation as per baseline with use of front wheel walker and weightbearing as tolerated secondary to surgery. Assessment: I discussed treatment plan with the patient who verbalizes understanding of the treatment plan in hospital and necessary follow-up. Written instructions were provided as a reminder. Additional Instructions or Follow Up instructions: Follow-up with [facility] orthopedics on 10/04/23 at 845am. It is also recommended you follow-up with your primary care provider at the [facility] within 2 weeks of discharge You are weightbearing as tolerated with front wheeled walker at all times until your mobilization improves Please resume all of your home medications You will require IV Ancef 2 mg every 8 hours via infusion for 6 weeks You will require 300 mg of rifampin by mouth twice a day (every 12 hours) for 6 weeks You need to take aspirin 81 mg twice a day (every 12 hours) for 6 weeks to prevent blood clots You will take ibuprofen 600 mg every 6 hours by mouth for pain control as well as Tylenol 975 mg every 6 hours by mouth for pain control You were prescribed tramadol 50 mg to be taken every 6 hours by mouth for pain control as well as 5 mg of oxycodone to be taken by mouth every 6 hours as needed for pain control. Please refer to your pain medication schedule provided in your total joint Booklet and call the office with any questions or concerns if you have any chest pain or trouble breathing, please seek care in the emergency department immediately due to concern for blood clots in your lungs You have a dressing in place on your surgical wound that needs to remain dry and intact until follow-up. Please use sponge baths until the dressing has been evaluated by your surgeon If you notice new or worsening symptoms please call the orthopedic office at [phone]. Examples of the symptoms include fever, chills, redness or drainage from your wound. If it is after normal clinic hours please seek care in the emergency department No Smoking: If you smoke, Please STOP! Call for help. Follow-up with: Clarke Botello MD [Provider Admit Priv/Credential] -
[2023-10-02] MEDS: LORazepam 2 MG/ML VIAL IVP PRN
[2023-10-02 00:18] LABS: INFLUENZA A- RESP PCR PANEL NOT DETECTED; INFLUENZA B - RESP PCR PANEL NOT DETECTED; RSV- RESP PCR PANEL NOT DETECTED; SARS-CoV-2 -RESP PCR PANEL NOT DETECTED
[2023-10-02 02:16] VITALS: BP 159/68; O2SAT 93
[2023-10-02] MEDS ORDERED: ATORVASTATIN 10 MG TABLET PO SCH (21:00)
== END 2023-10-02 02:27 | disposition short-term general hospital (02) | DRG 466 ==
LOC: ICU 10:03 → MS2 13:59
PROVIDERS: ADMIT Orthopaedic Surgery; ATTEND Orthopaedic Surgery
PROC: 0SBD0ZZ Excision of Left Knee Joint, Open Approach (ICD-10-PCS; 2023-09-29)
PROC: 3E1U38Z Irrigation of Joints using Irrigating Substance, Percutaneous Approach (ICD-10-PCS; 2023-09-29)
PROC: 02H633Z Insertion of Infusion Device into Right Atrium, Percutaneous Approach (ICD-10-PCS; 2023-09-29)
PROC: 0SPW0JZ Removal of Synthetic Substitute from Left Knee Joint, Tibial Surface, Open Approach (ICD-10-PCS; principal; 2023-09-29 11:30)
PROC: 0SRW0JA Replacement of Left Knee Joint, Tibial Surface with Synthetic Substitute, Uncemented, Open Approach (ICD-10-PCS; 2023-09-29 11:30)
DX: T84.54XA Infection and inflammatory reaction due to internal left knee prosthesis, initial encounter (principal); G06.1 Intraspinal abscess and granuloma; G95.19 Other vascular myelopathies; B95.61 Methicillin susceptible Staphylococcus aureus infection as the cause of diseases classified elsewhere; R19.7 Diarrhea, unspecified; M48.061 Spinal stenosis, lumbar region without neurogenic claudication; Z87.891 Personal history of nicotine dependence; I48.0 Paroxysmal atrial fibrillation
CPT/HCPCS: 36415; 72070; 72100; 72158; 80048; 80053; 85025; 85651; 86140; 87070; 87075; 87181; 87205; 87493; 87637; 97162; 97165; 97530; A9270; A9575; J1170; J2060; J2372; J3010; J3370; J7120

== ENCOUNTER 2023-10-23 14:38 | Emergency (ER) | payer OTHER ==
[2023-10-23 14:52] VITALS: BP 141/78; O2SAT 99
[2023-10-23] MEDS ORDERED: ALTEPLASE 2 MG VIAL IJ ONE (15:13)
--- NOTE | 2023-10-23 15:18 | ED Physician Documentation ---
History of Present Illness - Stated complaint Stated Complaint: PICC LINE NOT WORKING - Chief complaint Chief Complaint: General - History obtained from History obtained from: Patient - History of Present Illness Timing: Today Pain level max: 0 Pain level now: 0 - Additonal information Additional information: 58-year-old male with a PICC line in the left arm that was unable to be flushed today. It was redressed yesterday. No redness. No drainage. No fevers. No chills. He is on it for outpatient IV antibiotics. Review of Systems Constitutional: denies: Fever GI: denies: Vomiting, Diarrhea Musculoskeletal: denies: Neck pain, Back pain Neurologic: denies: Headache PD PAST MEDICAL HISTORY - Past Medical History Cardiovascular: Atrial fibrillation Respiratory: None Neuro: None Endocrine/Autoimmune: None GI: None : None HEENT: Chronic vision loss, Other Psych: Anxiety Musculoskeletal: Osteoarthritis Derm: None - Past Surgical History Past Surgical History: Yes General: Appendectomy, Colonoscopy Ortho: Knee replacement - Present Medications Home Medications: Ambulatory Orders Medication Instructions Recorded Confirmed Diclofenac Sodium 1% Gel [Voltaren 1 applic TOP DAILY 09/27/23 09/29/23 Gel] buPROPion HCL [Wellbutrin Xl] 300 mg PO DAILY 09/27/23 09/29/23 Atorvastatin [Lipitor] 10 mg ORAL DAILY 09/29/23 09/29/23 Cholecalciferol [Vitamin D3] 5,000 unit PO DAILY 09/29/23 09/29/23 - Allergies Allergies/Adverse Reactions: Allergies Allergy/AdvReac Type Severity Reaction Status Date / Time metoprolol Allergy Unknown Verified 10/23/23 14:50 - Social History Does the pt smoke?: No Smoking Status: Never smoker Does the pt drink ETOH?: No Does the pt have substance abuse?: No - Immunizations Immunizations are current?: Yes - POLST Patient has POLST: No PD ED PE NORMAL - Vitals Vital signs reviewed: Yes - General General: Alert and oriented X 3, No acute distress - HEENT HEENT: Moist mucous membranes - Derm Derm: Warm and dry - Extremities Extremities: Other (Left upper extremity has a PICC line in place. The wound is clean, dry, intact.) - Neuro Neuro: Alert and oriented X 3 - Psych Psych: Normal mood, Normal affect Results - Vitals Vitals: Vital Signs - 24 hr 10/23/23 14:44 Temperature 36.1 C L Heart Rate 118 H Respiratory 18 Rate Blood Pressure 141/78 H O2 Saturation 99 Oxygen O2 Source Room air PD Medical Decision Making - ED course Complexity details: reviewed results, re-evaluated patient, considered differential, d/w patient ED course: Patient's nurse worked on the PICC line and was eventually able to get it to flush normally. No emergency medical condition at this time. Patient counseled regarding signs and symptoms for which I believe and urgent re-evaluation would be necessary. Patient with good understanding of and agreement to plan and is comfortable going home at this time This document was made in part using voice recognition software. While efforts are made to proofread this document, sound alike and grammatical errors may occur. Departure - Departure Disposition: 01 Home, Self Care Clinical Impression: Occluded PICC line Qualifiers: Encounter type: initial encounter Qualified Code(s): T82.898A - Other specified complication of vascular prosthetic devices, implants and grafts, initial encounter Condition: Good Instructions: ED PICC Line Care Follow-Up: your,doctor in 1 week [Other] Comments: Your PICC line was flushed today and appears to be working now. Please use as directed make sure you are flushing it regularly. Please return if you worsen Forms: PCP List Discharge Date/Time: 10/23/23 15:30
== END 2023-10-23 15:30 | disposition home or self-care (01) ==
LOC: ED 14:38
DX: T82.898A Other specified complication of vascular prosthetic devices, implants and grafts, initial encounter (principal); Y82.8 Other medical devices associated with adverse incidents
CPT/HCPCS: 99282

== ENCOUNTER 2023-11-26 10:58 | Outpatient (CLI) | payer OTHER ==
[2023-11-26 11:10] LABS: BASOPHILS # (AUTO) 0.1 10^3/uL (0.0-0.1); BASOPHILS % (AUTO) 0.9 %; EOSINOPHILS # (AUTO) 0.3 10^3/uL (0.0-0.7); EOSINOPHILS % (AUTO) 3.9 %; HCT - HEMATOCRIT 38.3 % (42.0-52.0); HGB - HEMOGLOBIN 11.9 g/dL (14.0-18.0); LYMPHOCYTES # (AUTO) 2.3 10^3/uL (1.5-3.5); MEAN CORPUSCULAR HEMOGLOBIN 27.9 pg (27.0-31.0); MEAN CORPUSCULAR HGB CONC 31.1 g/dL (32.0-36.0); MEAN CORPUSCULAR VOLUME 89.7 fL (80.0-94.0); MEAN PLATELET VOLUME 8.7 fL (7.4-11.4); MONOCYTES # (AUTO) 0.7 10^3/uL (0.0-1.0); NEUTROPHILS # (AUTO) 3.3 10^3/uL (1.5-6.6); PLT - PLATELET COUNT 397 10^3/uL (130-450); RED BLOOD COUNT 4.27 10^6/uL (4.70-6.10); RED CELL DISTRIBUTION WIDTH 14.9 % (12.0-15.0); WHITE BLOOD COUNT 6.6 x10^3/uL (4.8-10.8)
[2023-11-26 11:25] LABS: ALBUMIN/GLOBULIN RATIO 1.1 (1.0-2.2); BILIRUBIN,TOTAL 0.3 mg/dL (0.2-1.0); CALCIUM 9.4 mg/dL (8.5-10.3); POTASSIUM 4.7 mmol/L (3.5-4.5); TOTAL PROTEIN 7.7 g/dL (6.4-8.9)
== END 2023-11-26 10:59 | disposition home or self-care (01) ==
LOC: LAB.R 10:58
PROVIDERS: ATTEND Internal Medicine
DX: T84.59XA Infection and inflammatory reaction due to other internal joint prosthesis, initial encounter (principal)
CPT/HCPCS: 80053; 85025; 85651; 86140

== ENCOUNTER 2023-12-03 13:39 | Outpatient (CLI) | payer OTHER ==
[2023-12-03 13:52] LABS: BASOPHILS # (AUTO) 0.1 10^3/uL (0.0-0.1); BASOPHILS % (AUTO) 1.1 %; EOSINOPHILS # (AUTO) 0.1 10^3/uL (0.0-0.7); HCT - HEMATOCRIT 41.1 % (42.0-52.0); HGB - HEMOGLOBIN 12.9 g/dL (14.0-18.0); LYMPHOCYTES # (AUTO) 2.5 10^3/uL (1.5-3.5); LYMPHOCYTES % (AUTO) 36.1 %; MEAN CORPUSCULAR HEMOGLOBIN 27.7 pg (27.0-31.0); MEAN CORPUSCULAR HGB CONC 31.4 g/dL (32.0-36.0); MEAN CORPUSCULAR VOLUME 88.4 fL (80.0-94.0); MEAN PLATELET VOLUME 9.3 fL (7.4-11.4); MONOCYTES # (AUTO) 0.6 10^3/uL (0.0-1.0); MONOCYTES % (AUTO) 8.4 %; NEUTROPHILS # (AUTO) 3.7 10^3/uL (1.5-6.6); NEUTROPHILS % (AUTO) 52.1 %; PLT - PLATELET COUNT 408 10^3/uL (130-450); RED BLOOD COUNT 4.65 10^6/uL (4.70-6.10); RED CELL DISTRIBUTION WIDTH 15.7 % (12.0-15.0)
[2023-12-03 14:06] LABS: ALBUMIN/GLOBULIN RATIO 1.2 (1.0-2.2); BILIRUBIN,TOTAL 0.3 mg/dL (0.2-1.0); CALCIUM 8.8 mg/dL (8.5-10.3); CREATININE 0.9 mg/dL (0.6-1.3); TOTAL PROTEIN 7.4 g/dL (6.4-8.9)
== END 2023-12-03 13:40 | disposition home or self-care (01) ==
LOC: LAB.R 13:39
PROVIDERS: ATTEND Internal Medicine
DX: T84.59XA Infection and inflammatory reaction due to other internal joint prosthesis, initial encounter (principal)
CPT/HCPCS: 80053; 85025

== ENCOUNTER 2023-12-22 07:20 | Emergency (ER) | payer OTHER ==
[2023-12-22] MEDS ORDERED: SODIUM CHLORIDE 0.9% 1,000 ML IV STA (07:45)
[2023-12-22] MEDS ORDERED: iohexoL-300 100 ML VIAL ONE (07:56)
--- NOTE | 2023-12-22 07:57 | ED Physician Documentation ---
History of Present Illness - Stated complaint Stated Complaint: HIGH HR/SOA - Chief complaint Chief Complaint: Cardiac - History obtained from History obtained from: Patient - Additonal information Additional information: Patient is a 58-year-old male with numerous recent surgeries on his left knee as well as his back presenting for evaluation of tachycardia and at times feeling short of air. Patient states that since one of his surgeries in September he has been having tachycardia and been followed by his PCP at the [facility]. He has been started on 25 mg of metoprolol daily. He reports his heart rate on the metoprolol has usually been in the high 90s. He did have a loop recorder on for a few weeks and is supposed to follow-up again with his CT doctor. On Wednesday he had labs done and he was notified yesterday that a D-dimer which was ordered on Wednesday was elevated so his PCP recommends he comes to the emergency department for a CT angio to rule out pulmonary embolism. Patient denies history of prior PE. He has reported increased weight gain since his surgeries as he has not been very mobile. Patient states he had a knee replacement last fall which got infected. He then had a second knee surgery in the fall. He then had some issues with his back and they noted that infection had spread to his back so he sent to [facility] where they did surgery on his back as well as again on his left knee. He remains on IV antibiotics through a PICC line. He denies fever. He denies chest pain. Review of Systems Constitutional: denies: Fever Cardiac: reports: Palpitations. denies: Chest pain / pressure Respiratory: reports: Dyspnea GI: denies: Abdominal Pain, Vomiting Musculoskeletal: reports: Extremity swelling PD PAST MEDICAL HISTORY - Past Medical History Past Medical History: Yes Cardiovascular: Atrial fibrillation Respiratory: None Neuro: None Endocrine/Autoimmune: None GI: None : None HEENT: Chronic vision loss, Other Psych: Anxiety Musculoskeletal: Osteoarthritis Derm: None - Past Surgical History Past Surgical History: Yes General: Appendectomy, Colonoscopy Ortho: Knee replacement - Present Medications Home Medications: Ambulatory Orders Medication Instructions Recorded Confirmed Diclofenac Sodium 1% Gel [Voltaren 1 applic TOP DAILY 09/27/23 09/29/23 Gel] buPROPion HCL [Wellbutrin Xl] 300 mg PO DAILY 09/27/23 09/29/23 Atorvastatin [Lipitor] 10 mg ORAL DAILY 09/29/23 09/29/23 Cholecalciferol [Vitamin D3] 5,000 unit PO DAILY 09/29/23 09/29/23 - Allergies Allergies/Adverse Reactions: Allergies Allergy/AdvReac Type Severity Reaction Status Date / Time No Known Drug Allergies Allergy Verified 12/22/23 07:35 - Social History Does the pt smoke?: No Smoking Status: Never smoker Does the pt drink ETOH?: No Does the pt have substance abuse?: No - Immunizations Immunizations are current?: Yes - POLST Patient has POLST: No PD ED PE NORMAL - General General: Alert and oriented X 3, No acute distress, Well developed/nourished - HEENT HEENT: Atraumatic, Moist mucous membranes, Pharynx benign - Neck Neck: Supple, no meningeal sign - Cardiac Cardiac: Strong equal pulses, Other (Tachycardic, regular rhythm) - Respiratory Respiratory: No respiratory distress, Clear bilaterally - Abdomen Abdomen: Normal bowel sounds, Soft, Non tender, Non distended - Derm Derm: Warm and dry - Extremities Extremities: No calf tenderness / cord - Neuro Neuro: Normal speech Results - Vitals Vitals: Vital Signs - 24 hr 12/22/23 12/22/23 07:29 09:33 Temperature 35.4 C L 36.8 C Heart Rate 116 H 92 Respiratory 20 15 Rate Blood Pressure 138/101 H 140/84 H O2 Saturation 97 98 Oxygen O2 Source Room air - EKG (time done) 0729 EKG releavant findings:: EKG personally interpreted by author of this note. Relevant findings are: Rate 108, sinus tachycardia, no STEMI, no ST depressions - Labs Labs: Laboratory Tests 12/22/23 12/22/23 12/22/23 07:53 07:53 07:53 WBC 6.5 RBC 4.49 L Hgb 12.6 L Hct 40.5 L MCV 90.2 MCH 28.1 MCHC 31.1 L RDW 16.9 H Plt Count 343 MPV 8.8 Neut # (Auto) 3.9 Lymph # (Auto) 2.0 [place] # (Auto) 0.5 Eos # (Auto) 0.1 Baso # (Auto) 0.1 Absolute Nucleated RBC 0.00 Nucleated RBC % 0.0 Sodium 136 Potassium 3.9 Chloride 104 Carbon Dioxide 23 Anion Gap 9.0 BUN 23 H Creatinine 0.8 Estimated GFR (MDRD) 99 Glucose 163 H Calcium 9.4 Total Bilirubin 0.2 AST 15 ALT 8 L Alkaline Phosphatase 87 Troponin I High Sens 4.6 B-Natriuretic Peptide 77 Total Protein 7.4 Albumin 3.9 Globulin 3.5 Albumin/Globulin Ratio 1.1 PD Medical Decision Making - ED course Complexity details: reviewed results, re-evaluated patient, d/w patient ED course: Patient is a 58-year-old male presenting for evaluation of feeling short of breath as well as tachycardia. His tachycardia has been ongoing for a few months since having a number of surgeries. He denies fever. Denies chest pain. His EKG demonstrates sinus tach. He has taken his metoprolol today. Outpatient labs on Wednesday showed an elevated D-dimer. CBC, chemistry, troponin, BNP and chest x-ray were ordered along with a CT angio of the chest. No signs of ACS or congestive heart failure. His CT scan is negative for pulmonary embolism. I also obtained lower extremity ultrasounds which were negative for DVT. Patient's heart rate has improved here without intervention. He has been ambulating to the bathroom and back and without any symptoms. At this time he appears stable for discharge with need for close outpatient follow-up. He is advised on concerning symptoms to return for. Departure - Departure Disposition: Home, Self Care Clinical Impression: Sinus tachycardia, Dyspnea Condition: Stable Instructions: ED Dyspnea Shortness of Breath Comments: Your heart rate initially was elevated but it has improved without needing any specific intervention. We checked your blood test today including CBC, chemistry panel, troponin and BNP and without any significant abnormalities. We also did a chest x-ray, CT scan of your lungs, And ultrasounds of both of your legs. There is no signs of a blood clot. I would recommend close follow[facility] CHEST XR FINDINGS: Surgical changes and devices: None. Lungs and pleura: No pleural effusions or pneumothorax. Lungs are clear. Mediastinum: Mediastinal contours appear normal. Heart size is normal. Bones and chest wall: No suspicious bony lesions. Overlying soft tissues appear unremarkable. IMPRESSION: No acute cardiopulmonary process. ULTRASOUND LEGS: IMPRESSION: No deep venous thrombosis of the visualized lower extremities. CT CHEST: FINDINGS: Image quality: Excellent. Large vessels: No filling defects within the opacified pulmonary arteries, accounting for motion and contrast timing. No evidence of acute aortic syndrome or aortic aneurysm. Lungs and pleura: No consolidation. No pleural effusions. No pneumothorax. No suspicious pulmonary nodules which require follow up. Mediastinum: Heart size is normal. No pericardial effusion. No large vessel abnormality. No mediastinal adenopathy by size criteria. Chest wall and lower neck: Thyroid is unremarkable. No axillary or supr aclavicular adenopathy by size. Bones: No aggressive osseous abnormality. Upper Abdomen: Simple left renal cyst. IMPRESSION: Lungs are clear. No pulmonary embolism. Forms: PCP List Discharge Date/Time: 12/22/23 10:13
[2023-12-22 07:59] LABS: BASOPHILS # (AUTO) 0.1 10^3/uL (0.0-0.1); BASOPHILS % (AUTO) 0.8 %; EOSINOPHILS # (AUTO) 0.1 10^3/uL (0.0-0.7); HCT - HEMATOCRIT 40.5 % (42.0-52.0); HGB - HEMOGLOBIN 12.6 g/dL (14.0-18.0); LYMPHOCYTES % (AUTO) 30.4 %; MEAN CORPUSCULAR HEMOGLOBIN 28.1 pg (27.0-31.0); MEAN CORPUSCULAR HGB CONC 31.1 g/dL (32.0-36.0); MEAN CORPUSCULAR VOLUME 90.2 fL (80.0-94.0); MEAN PLATELET VOLUME 8.8 fL (7.4-11.4); MONOCYTES # (AUTO) 0.5 10^3/uL (0.0-1.0); MONOCYTES % (AUTO) 7.4 %; NEUTROPHILS # (AUTO) 3.9 10^3/uL (1.5-6.6); NEUTROPHILS % (AUTO) 59.2 %; PLT - PLATELET COUNT 343 10^3/uL (130-450); RED BLOOD COUNT 4.49 10^6/uL (4.70-6.10); RED CELL DISTRIBUTION WIDTH 16.9 % (12.0-15.0); WHITE BLOOD COUNT 6.5 x10^3/uL (4.8-10.8)
[2023-12-22 08:16] LABS: ALBUMIN 3.9 g/dL (3.2-5.5); ALBUMIN/GLOBULIN RATIO 1.1 (1.0-2.2); BILIRUBIN,TOTAL 0.2 mg/dL (0.2-1.0); CALCIUM 9.4 mg/dL (8.5-10.3); CREATININE 0.8 mg/dL (0.6-1.3); POTASSIUM 3.9 mmol/L (3.5-4.5); TOTAL PROTEIN 7.4 g/dL (6.4-8.9)
[2023-12-22 08:20] LABS: TROPONIN I HIGH SENSITIVITY 4.6 ng/L (2.3-19.7)
--- NOTE | 2023-12-22 08:28 | XRAY Report ---
PROCEDURE: Chest 1V INDICATIONS: SOA TECHNIQUE: One view of the chest was acquired. COMPARISON: 09/29/2023. FINDINGS: Surgical changes and devices: None. Lungs and pleura: No pleural effusions or pneumothorax. Lungs are clear. Mediastinum: Mediastinal contours appear normal. Heart size is normal. Bones and chest wall: No suspicious bony lesions. Overlying soft tissues appear unremarkable. IMPRESSION: No acute cardiopulmonary process. Reviewed by: Oniel Nava MD on 12/22/2023 8:26 AM PST Approved by: Oniel Nava MD on 12/22/2023 8:26 AM PST Station ID: [id number]
[2023-12-22] MEDS ORDERED: iohexoL-300 100 ML VIAL IVP ONE (09:11)
--- NOTE | 2023-12-22 09:20 | CT Report ---
PROCEDURE: Angio Chest INDICATIONS: SOA/elevated ddimer as outpatient CONTRAST: Omni 300 80ml TECHNIQUE: After the administration of intravenous contrast, 2 mm axial images were acquired from the pulmonary apices to the posterior costophrenic angles during the arterial phase. In addition, 1 mm lung kernel and 5 mm soft tissue kernel reconstructions were performed. 3-dimensional coronal oblique maximum int ensity projection (MIP) reformats, 8 mm axial MIP, and 5 mm coronal and sagittal MPR reformats were t hen performed through the thorax. For radiation dose reduction, the following was used: automated exp osure control, adjustment of mA and/or kV according to patient size. COMPARISON: Chest x-ray 12/22/2023. FINDINGS: Image quality: Excellent. Large vessels: No filling defects within the opacified pulmonary arteries, accounting for motion and contrast timing. No evidence of acute aortic syndrome or aortic aneurysm. Lungs and pleura: No consolidation. No pleural effusions. No pneumothorax. No suspicious pulmonary n odules which require follow up. Mediastinum: Heart size is normal. No pericardial effusion. No large vessel abnormality. No mediastin al adenopathy by size criteria. Chest wall and lower neck: Thyroid is unremarkable. No axillary or supraclavicular adenopathy by size . Bones: No aggressive osseous abnormality. Upper Abdomen: Simple left renal cyst. IMPRESSION: Lungs are clear. No pulmonary embolism. Reviewed by: Latasha Quevedo MD on 12/22/2023 9:19 AM [facility] Approved by: Latasha Quevedo MD on 12/22/2023 9:19 AM [facility] Station ID: [id number]
--- NOTE | 2023-12-22 09:49 | Ultrasound Report ---
PROCEDURE: Duplex Ext Veins Bilateral INDICATIONS: Brian Leyva MD TECHNIQUE: Real-time imaging, as well as color and pulse Doppler interrogation, were performed of the deep veins of both legs from the inguinal ligament to the popliteal fossa. Attempted visualization of the calf veins was performed. COMPARISON: None FINDINGS: The deep veins are normally compressible, and free of intraluminal thrombus. Color and pu lse Doppler demonstrate normal phasic intravascular flow. There is normal augmentation response to d istal compression maneuver. IMPRESSION: No deep venous thrombosis of the visualized lower extremities. Reviewed by: Latasha Quevedo MD on 12/22/2023 9:48 AM [facility] Approved by: Latasha Quevedo MD on 12/22/2023 9:48 AM [facility] Station ID: [id number]
[2023-12-22 10:06] VITALS: BP 140/84; O2SAT 98
== END 2023-12-22 10:13 | disposition home or self-care (01) ==
LOC: ED 07:20
DX: R00.0 Tachycardia, unspecified (principal); R06.09 Other forms of dyspnea; I48.91 Unspecified atrial fibrillation
CPT/HCPCS: 36415; 71045; 71275; 80053; 83880; 84484; 85025; 93005; 93970; 96360; 99284; Q9967

== ENCOUNTER 2024-01-18 08:00 | Outpatient (CLI) | payer OTHER ==
--- NOTE | 2024-01-18 23:01 | XRAY Report ---
PROCEDURE: Knee 4 View LT INDICATIONS: LEFT KNEE PAIN TECHNIQUE: 4 views of the knee(s) were acquired. COMPARISON: Left knee radiographs 09/08/2023. FINDINGS: Bones: Prior left knee arthroplasty. Possible lucency at the lateral femoral condyle seen on one pro jection. No fractures or dislocations. No suspicious bony lesions. Severe joint space narrowing at the right knee medial compartment. Soft tissues: Small knee joint effusion. No suspicious soft tissue calcifications or masses. IMPRESSION: Possible lucency at the lateral femoral condyle on one projection. This was not appreciated on the pr ior exam and could be seen in the setting of prosthetic loosening or infection. Small joint effusion suspected. Recommend clinical correlation. Consider further evaluation with additional views or CT or MRI. Reviewed by: Mars Huggins MD on 01/18/2024 11:00 PM PST Approved by: Mars Huggins MD on 01/18/2024 11:00 PM PST Station ID: [id number]
== END 2024-01-18 23:59 | disposition home or self-care (01) ==
LOC: DI.WOS 08:00
PROVIDERS: ATTEND Orthopaedic Surgery
DX: M25.462 Effusion, left knee (principal); Z96.652 Presence of left artificial knee joint

== ENCOUNTER 2024-05-04 16:46 | Observation (INO) | payer OTHER ==
--- NOTE | 2024-05-04 17:38 | ED Physician Documentation ---
History of Present Illness - Stated complaint Stated Complaint: VOMIT/CHILLS/WEAKNESS - Chief complaint Chief Complaint: General - History obtained from History obtained from: Patient - Additonal information Additional information: 58-year-old gentleman history of paroxysmal atrial fibrillation, he had acute liver failure 5 years ago related to alcoholism. He has had a couple of relapses to alcohol since that time and his most recent drink was 2 weeks ago. Also in September he developed an infection of his prosthetic knee joint and subsequently sounds like probably a epidural abscess. He was on antibiotics until last month for that. He presents with a 4-day illness marked by chills, body aches, vomiting and diarrhea. He denies fevers. He is not in pain anywhere specific, just kind of all over. He is here with his roommate. PD PAST MEDICAL HISTORY - Past Medical History Cardiovascular: Atrial fibrillation Respiratory: None Neuro: None Endocrine/Autoimmune: None GI: None : None HEENT: Chronic vision loss, Other Psych: Anxiety Musculoskeletal: Osteoarthritis Derm: None - Past Surgical History Past Surgical History: Yes General: Appendectomy, Colonoscopy Ortho: Knee replacement - Present Medications Home Medications: Ambulatory Orders Medication Instructions Recorded Confirmed Diclofenac Sodium 1% Gel [Voltaren 1 applic TOP DAILY 09/27/23 05/04/24 Gel] buPROPion HCL [Wellbutrin Xl] 300 mg PO DAILY 09/27/23 05/04/24 Atorvastatin [Lipitor] 10 mg ORAL DAILY 09/29/23 05/04/24 Cholecalciferol [Vitamin D3] 5,000 unit PO DAILY 09/29/23 05/04/24 - Allergies Allergies/Adverse Reactions: Allergies Allergy/AdvReac Type Severity Reaction Status Date / Time No Known Drug Allergies Allergy Verified 05/04/24 17:14 - Social History Does the pt smoke?: No Smoking Status: Never smoker Does the pt drink ETOH?: No Does the pt have substance abuse?: No - Immunizations Immunizations are current?: Yes - POLST Patient has POLST: No PD ED PE NORMAL - Vitals Vital signs reviewed: Yes - General General: Alert and oriented X 3, Other (He appears shaky, anxious, and tachycardic) - HEENT HEENT: PERRL, EOMI, Other (Question of mild scleral icterus, but not globally jaundiced.) - Neck Neck: Supple, no meningeal sign, No bony TTP - Cardiac Cardiac: Other (Borderline resting tachycardia, regular without murmur) - Respiratory Respiratory: No respiratory distress, Clear bilaterally - Abdomen Abdomen: Non tender - Back Back: No spinal TTP - Derm Derm: No rash - Neuro Neuro: Alert and oriented X 3 Results - Vitals Vitals: Vital Signs - 24 hr 05/04/24 05/04/24 17:10 19:20 Temperature 36.1 C L Heart Rate 119 H 87 Respiratory 24 18 Rate Blood Pressure 154/89 H 138/72 H O2 Saturation 98 97 Oxygen O2 Source Room air - Labs Labs: Microbiology 05/04/24 18:02 Occult Blood - Final Stool Laboratory Tests 05/04/24 05/04/24 05/04/24 17:28 17:28 17:28 WBC 8.3 RBC 4.19 L Hgb 14.3 Hct 40.6 L MCV 96.9 H MCH 34.1 H MCHC 35.2 RDW 14.4 Plt Count 89 L MPV 9.5 Neut # (Auto) 5.8 Lymph # (Auto) 1.5 [place] # (Auto) 0.9 Eos # (Auto) 0.0 Baso # (Auto) 0.1 Absolute Nucleated RBC 0.00 Nucleated RBC % 0.0 PT INR Sodium 134 L Potassium 4.1 Chloride 92 L Carbon Dioxide 17 L Anion Gap 25.0 H BUN 23 H Creatinine 1.0 Estimated GFR (MDRD) 77 L Glucose 101 Calcium 9.5 Magnesium 1.8 Total Bilirubin 2.8 H AST 1062 H ALT 679 H Alkaline Phosphatase 133 H Total Protein 6.9 Albumin 4.6 Globulin 2.3 Albumin/Globulin Ratio 2.0 Lipase 398 H Nasal Adenovirus (PCR) Nasal B. parapertussis DNA (PCR) Nasal Coronavir 229E PCR Nasal Coronavir HKU1 PCR Nasal Coronavir NL63 PCR Nasal Coronavir OC43 PCR Nasal Enterovir/Rhinovir PCR Nasal Influenza B PCR Nasal Influenza A PCR Nasal Parainfluen 1 PCR Nasal Parainfluen 2 PCR Nasal Parainfluen 3 PCR Nasal Parainfluen 4 PCR Nasal RSV (PCR) Nasal B.pertussis DNA PCR Nasal C.pneumoniae (PCR) Ho Human Metapneumo PCR Nasal M.pneumoniae (PCR) Nasal SARS-CoV-2 (PCR) Ethyl Alcohol < 10.0 05/04/24 05/04/24 17:29 18:15 WBC RBC Hgb Hct MCV MCH MCHC RDW Plt Count MPV Neut # (Auto) Lymph # (Auto) [place] # (Auto) Eos # (Auto) Baso # (Auto) Absolute Nucleated RBC Nucleated RBC % PT 11.2 INR 1.0 Sodium Potassium Chloride Carbon Dioxide Anion Gap BUN Creatinine Estimated GFR (MDRD) Glucose Calcium Magnesium Total Bilirubin AST ALT Alkaline Phosphatase Total Protein Albumin Globulin Albumin/Globulin Ratio Lipase Nasal Adenovirus (PCR) NOT DETECTED Nasal B. parapertussis DNA (PCR) NOT DETECTED Nasal Coronavir 229E PCR NOT DETECTED Nasal Coronavir HKU1 PCR NOT DETECTED Nasal Coronavir NL63 PCR NOT DETECTED Nasal Coronavir OC43 PCR NOT DETECTED Nasal Enterovir/Rhinovir PCR NOT DETECTED Nasal Influenza B PCR NOT DETECTED Nasal Influenza A PCR NOT DETECTED Nasal Parainfluen 1 PCR NOT DETECTED Nasal Parainfluen 2 PCR NOT DETECTED Nasal Parainfluen 3 PCR NOT DETECTED Nasal Parainfluen 4 PCR NOT DETECTED Nasal RSV (PCR) NOT DETECTED Nasal B.pertussis DNA PCR NOT DETECTED Nasal C.pneumoniae (PCR) NOT DETECTED Ho Human Metapneumo PCR NOT DETECTED Nasal M.pneumoniae (PCR) NOT DETECTED Nasal SARS-CoV-2 (PCR) NOT DETECTED Ethyl Alcohol PD Medical Decision Making - ED course ED course: 58-year-old gentleman with history of alcoholism and the above comorbidities presents with about 4 days of vomiting, dark diarrhea, body aches and weakness. He appears tachycardic and shaky here. Workup in the emergency department demonstrates CBC with only mild anemia. His INR is normal. CMP notable for acidosis with transaminitis and elevated lipase. Blood alcohol was negative. Discussed with him results and he admits it has not been 2 weeks since his last drink but he was drinking heavily this last weekend, about 4 days ago. Discussed with him that he has alcoholic hepatitis but note that his discriminatory factor does not recommend glucocorticoids at this time and some pancreatitis 2. Plan for ultrasound and admission. He is receiving Protonix and thiamine in the emergency department as well as IV fluids. I spoke with Dr. Jane who is happy to see the patient if formally consulted by hospitalist service. Neither he nor I see anything in the current workup or symptomatology that would mandate transfer to a tertiary facility. Subsequently preliminary abdominal ultrasound demonstrates hepatic steatosis, but no biliary ductal dilatation or cholelithiasis or signs of cholecystitis. Spoke with Dr. Franklin, [facility] for admission at 8:54 PM. Departure - Departure Disposition: 66 [facility] DC/Xfer Clinical Impression: Alcoholic pancreatitis Qualifiers: Chronicity: acute Acute pancreatitis complication: unspecified Qualified Code(s): K85.20 - Alcohol induced acute pancreatitis without necrosis or infection GI bleeding Qualifiers: GI bleed type/associated pathology: unspecified gastrointestinal hemorrhage type Qualified Code(s): K92.2 - Gastrointestinal hemorrhage, unspecified Alcoholic hepatitis Qualifiers: Ascites presence: without ascites Qualified Code(s): K70.10 - Alcoholic hepatitis without ascites Condition: Serious Forms: PCP List
[2024-05-04 17:39] LABS: BASOPHILS # (AUTO) 0.1 10^3/uL (0.0-0.1); BASOPHILS % (AUTO) 0.6 %; EOSINOPHILS % (AUTO) 0.4 %; HCT - HEMATOCRIT 40.6 % (42.0-52.0); HGB - HEMOGLOBIN 14.3 g/dL (14.0-18.0); LYMPHOCYTES # (AUTO) 1.5 10^3/uL (1.5-3.5); LYMPHOCYTES % (AUTO) 18.5 %; MEAN CORPUSCULAR HEMOGLOBIN 34.1 pg (27.0-31.0); MEAN CORPUSCULAR HGB CONC 35.2 g/dL (32.0-36.0); MEAN CORPUSCULAR VOLUME 96.9 fL (80.0-94.0); MEAN PLATELET VOLUME 9.5 fL (7.4-11.4); MONOCYTES # (AUTO) 0.9 10^3/uL (0.0-1.0); MONOCYTES % (AUTO) 10.4 %; NEUTROPHILS # (AUTO) 5.8 10^3/uL (1.5-6.6); NEUTROPHILS % (AUTO) 69.7 %; PLT - PLATELET COUNT 89 10^3/uL (130-450); RED BLOOD COUNT 4.19 10^6/uL (4.70-6.10); RED CELL DISTRIBUTION WIDTH 14.4 % (12.0-15.0); WHITE BLOOD COUNT 8.3 x10^3/uL (4.8-10.8)
[2024-05-04 17:53] LABS: MAGNESIUM 1.8 mg/dL (1.7-2.3)
[2024-05-04] MEDS: KETOROLAC 15 MG/ML VIAL IVP STA (17:54)
[2024-05-04 17:59] LABS: ETOH - ETHANOL < 10.0 mg/dL
[2024-05-04] MEDS: SODIUM CHLORIDE 0.9% 1,000 ML IV STA ×2 (17:59→18:40)
[2024-05-04 18:13] LABS: ALBUMIN 4.6 g/dL (3.2-5.5); BILIRUBIN,TOTAL 2.8 mg/dL (0.2-1.0); CALCIUM 9.5 mg/dL (8.5-10.3); POTASSIUM 4.1 mmol/L (3.5-4.5); TOTAL PROTEIN 6.9 g/dL (6.4-8.9)
[2024-05-04 18:20] LABS: PT - PROTHROMBIN TIME 11.2 secs (9.9-12.6)
[2024-05-04] MEDS: PANTOPRAZOLE 40 MG VIAL IVP STA (18:39)
[2024-05-04] MEDS: THIAMINE INJ 100 MG in SODIUM CHLORIDE 0.9% 50 ML IV STA (19:08)
[2024-05-04 19:15] LABS: CORONAVIRUS 229E-RESP PCR NOT DETECTED; CORONAVIRUS HKU1-RESP PCR NOT DETECTED; CORONAVIRUS NL63-RESP PCR NOT DETECTED; CORONAVIRUS OC43-RESP PCR NOT DETECTED; HUMAN METAPNEUMOVIRUS NOT DETECTED; INFLUENZA A- RESP PCR PANEL NOT DETECTED; RHINOVIRUS/ENTEROVIRUS NOT DETECTED; SARS-CoV-2 -RESP PCR PANEL NOT DETECTED
[2024-05-04 19:16] LABS: B. PARAPERTUSSIS- RESP PCR PAN NOT DETECTED; B. PERTUSSIS- RESP PCR PANEL NOT DETECTED; C. PNEUMONIAE- RESP PCR PANEL NOT DETECTED; INFLUENZA B - RESP PCR PANEL NOT DETECTED; M. PNEUMONIAE- RESP PCR PANEL NOT DETECTED; PARAINFLUENZA VIRUS 1 NOT DETECTED; PARAINFLUENZA VIRUS 2 NOT DETECTED; PARAINFLUENZA VIRUS 3 NOT DETECTED; PARAINFLUENZA VIRUS 4 NOT DETECTED; RSV- RESP PCR PANEL NOT DETECTED
[2024-05-04] MEDS ORDERED: ONDANSETRON 4 MG/2 ML VIAL IVP PRN (20:57)
--- NOTE | 2024-05-04 21:11 | HISTORY & PHYSICAL EXAMINATION ---
Chief Complaint - Chief Complaint Chief Complaint: abdominal pain and malaise History of Present Illness - Admitted From Admitted From:: ED - History Obtained From Records Reviewed: EMR History obtained from: ED and patient Exam Limitations: tele medicine - History of Present Illness HPI Comment/Other: 58M c alcohol abuse. p/w abdominal pain and malaise since earlier this week. He binged drank over the weekend and started having sxs of malaise with subsequent abdominal pain. no acetaminophen. no trauma. prior hx of similar event with alcohol abuse. positive nausea. no vomiting. positive diarrhea. no bleed. no fever. no chills. no chest pain. no palpitation. no SOB. No dysuria. History - Past Medical History Cardiovascular: reports: Atrial fibrillation Respiratory: reports: None Neuro: reports: None Endocrine/Autoimmune: reports: None GI: reports: None : reports: None HEENT: reports: Chronic vision loss, Other Psych: reports: Anxiety Musculoskeletal: reports: Osteoarthritis Derm: reports: None MRSA Hx?: Yes - Past Surgical History General: reports: Appendectomy, Colonoscopy Ortho: reports: Knee replacement - Family & Social History Living Situation: With spouse/s.o. - Substance History Use: Uses substance without health or social issues: NONE - POLST Patient has POLST: No Meds/Allgy - Home Medications Home Medications: Ambulatory Orders Medication Instructions Recorded Confirmed Diclofenac Sodium 1% Gel [Voltaren 1 applic TOP DAILY 09/27/23 05/04/24 Gel] buPROPion HCL [Wellbutrin Xl] 300 mg PO DAILY 09/27/23 05/04/24 Atorvastatin [Lipitor] 10 mg ORAL DAILY 09/29/23 05/04/24 Cholecalciferol [Vitamin D3] 5,000 unit PO DAILY 09/29/23 05/04/24 Gabapentin [Neurontin] See Rx Instructions .ROUTE .COMPLEX 05/04/24 05/04/24 - Allergies Allergies/Adverse Reactions: Allergies Allergy/AdvReac Type Severity Reaction Status Date / Time No Known Drug Allergies Allergy Verified 05/04/24 17:14 Review of Systems - Constitutional Constitutional: reports: Malaise, Poor appetite. denies: Fever - Other Findings Other Findings: negative unless mentioned differently. Exam - Vital Signs Reviewed Vital Signs: Yes Vital Signs: Vital Signs x48h Temp Pulse Resp BP Pulse Ox 05/04/24 19:20 87 18 138/72 H 97 05/04/24 17:10 36.1 C L 119 H 24 154/89 H 98 - Physical Exam General Appearance: positive: Mild distress Eyes Bilateral: positive: Normal inspection ENT: positive: ENT inspection nml Neck: positive: Nml inspection Abdomen: positive: Tenderness Skin: positive: Color nml Extremities: positive: Nml appearance Neurologic/Psychiatric: positive: Oriented x3, CN's nml (2-12) Conclusion/Plan - Problem List (1) Alcoholic hepatitis Conclusion/Plan: elevated LFTs in setting of alcohol abuse. likely a component of hepatic steatosis as noted on US abdomen as well but more minor role. stop alcohol abuse. check acetaminophen level. monitor LFTs in am. social consult Qualifiers: Ascites presence: without ascites Qualified Code(s): K70.10 - Alcoholic hepatitis without ascites (2) Alcoholic pancreatitis Conclusion/Plan: noted mild elevated lipase in setting of alcohol abuse. followup final read US to ensure no gallstone involvement. clears. pain control. antiemetics. counselled to stop alcohol use forever. monitor lipase in am. iv fluid support Qualifiers: Chronicity: acute Acute pancreatitis complication: unspecified Qualified Code(s): K85.20 - Alcohol induced acute pancreatitis without necrosis or infection (3) Alcohol abuse Conclusion/Plan: counseled to stop alcohol use forever. social consult. (4) Low back pain Conclusion/Plan: pain controlled. hold on acetaminophen for now. pain control c morphine. monitor (5) HLD (hyperlipidemia) Conclusion/Plan: managed. hold statin until LFTs normalizes - Lab Results Lab results reviewed: Yes Fish Bones: 05/04/24 17:28 05/04/24 17:28 - Diagnostic Imaging Results Diagnostic Imaging Results: positive: Prelim report reviewed Core Measures - Anticipated LOS I expect patient to be DC'd or transferred within 96 hours.: Yes - Issues Hospital Issues and Management Plan: The patient consented to receive this telemedicine service, which I performed via live two-way audiovisual equipment. The patient is at ([facility]) and I am physically in [facility]. A nurse assisted me in the visit. Full code roommate SCDs Inpatient Vee Franklin DO Internal Medicine [employer] Tele Reliability Engineer - DVT/VTE - Prophylaxis VTE/DVT Device ordered at admit?: Yes Telemedicine Consult Details - Provider Location & Consult Time Telemedicine consultation conducted via videoconferencing?: Yes List names and roles of persons who participated in consult:: ED, patient Telemedicine provider location:: [place], [facility] Time Telemedicine consult began:: 20:50 Time Telemedicine consult completed:: 21:45
--- NOTE | 2024-05-04 21:14 | Ultrasound Report ---
PROCEDURE: Abdomen Limited INDICATIONS: Hepatitis/pancreatitis TECHNIQUE: Real-time focused scanning was performed of the abdomen, with image documentation. COMPARISONS: CT angiogram of chest dated 12/22/2023. FINDINGS: Liver: There is hepatomegaly. Coarsely echogenic liver parenchymal echotexture is seen. Normal hepat opedal flow is seen in the main portal vein. Gallbladder: No gallstones, sludge, wall thickening or pericholecystic edema. Biliary ducts: Intrahepatic bile ducts are non-dilated. Extrahepatic bile duct caliber measures 4.6 mm. Normal is 6-7 mm or less in diameter, or 10 mm or less post-cholecystectomy. Pancreas: Not well visualized due to overlying bowel gas. Right kidney: Normal in size and echotexture. Right kidney measures 12.9 cm long. No hydronephrosis or nephrolithiasis. No solid masses. No complex renal cystic lesions which require follow-up. IVC: Intrahepatic inferior vena cava is patent. Miscellaneous: No free abdominal fluid. IMPRESSION: 1. Limited evaluation due to overlying bowel gas. Pancreas is not visualized. 2. Hepatomegaly and hepatic steatosis. No discrete hepatic lesion. 3. Normal-appearing gallbladder. No biliary ductal dilatation. Reviewed by: Reggie Aviles MD on 05/04/2024 9:13 PM PDT Approved by: Reggie Aviles MD on 05/04/2024 9:13 PM PDT Station ID: [id number]
[2024-05-05] MEDS: SODIUM CHLORIDE FLUSH 0.9% 10 ML SYRINGE IVP SCH (01:33)
[2024-05-05] MEDS: MORPHINE 2 MG/ML CARPUJECT IVP PRN ×2 (04:12→22:51)
[2024-05-05] MEDS: SODIUM CHLORIDE FLUSH 0.9% 10 ML SYRINGE IVP PRN (04:13)
[2024-05-05 06:02] LABS: HGB - HEMOGLOBIN 11.8 g/dL (14.0-18.0); MEAN CORPUSCULAR HEMOGLOBIN 33.2 pg (27.0-31.0); MEAN CORPUSCULAR HGB CONC 32.8 g/dL (32.0-36.0); MEAN CORPUSCULAR VOLUME 101.4 fL (80.0-94.0); RED BLOOD COUNT 3.55 10^6/uL (4.70-6.10); RED CELL DISTRIBUTION WIDTH 14.5 % (12.0-15.0); WHITE BLOOD COUNT 3.9 x10^3/uL (4.8-10.8)
[2024-05-05 06:20] LABS: ALBUMIN 3.8 g/dL (3.2-5.5); ALBUMIN/GLOBULIN RATIO 1.7 (1.0-2.2); BILIRUBIN,TOTAL 1.7 mg/dL (0.2-1.0); CALCIUM 8.7 mg/dL (8.5-10.3); CREATININE 0.9 mg/dL (0.6-1.3); MAGNESIUM 1.8 mg/dL (1.7-2.3); PHOSPHORUS 2.3 mg/dL (2.5-5.0); POTASSIUM 3.7 mmol/L (3.5-4.5)
[2024-05-05 08:28] LABS: BILIRUBIN,URINE MODERATE (NEGATIVE); GLUCOSE, URINE (UA) NEGATIVE (NEGATIVE); KETONES,URINE (UA) >=80 mg/dL (NEGATIVE); LEUKOCYTE ESTERASE, URINE NEGATIVE (NEGATIVE); NITRITE,URINE NEGATIVE (NEGATIVE); OCCULT BLOOD,URINE NEGATIVE (NEGATIVE); PH,URINE 6.5 PH (5.0-7.5); PROTEIN,URINE 30 mg/dL (NEGATIVE); UROBILINOGEN,URINE 1 (NORMAL) E.U./dL (NORMAL)
[2024-05-05 08:36] LABS: CLARITY,URINE CLEAR (CLEAR)
[2024-05-05 08:37] LABS: BACTERIA,URINE Rare /HPF (None Seen); CASTS, URINE 0-2 Hyaline Casts /LPF; MUCUS,URINE Moderate Strands; RBC,URINE None Seen /HPF (0-5); SQUAMOUS EPITHELIAL CELL,UR RARE Squamous (<= Few); WBC,URINE 0-3 /HPF (0-3)
[2024-05-05] MEDS: GABAPENTIN 300 MG CAPSULE PO SCH ×2 (10:29→21:17)
[2024-05-05] MEDS: SODIUM PHOSPHATE 15 MMOL in SODIUM CHLORIDE 0.9% 250 ML IV ONE (10:30)
[2024-05-05] MEDS: buPROPion XL 150 MG TABLET PO SCH (10:30)
[2024-05-05] MEDS ORDERED: MULTIVITAMIN 10 ML, THIAMINE INJ 100 MG, FOLIC ACID INJ 1 MG in SODIUM CHLORIDE 0.9% 1,... IV SCH (12:00)
--- NOTE | 2024-05-05 12:50 | PHARMACY PROGRESS NOTE ---
- Best Possible Medication History Admit Date and Time: 05/04/242057 Processed by: Pharmacy Medication History completed: Yes Patient Interview: Completed Secondary Source(s): Pharmacy records, Insurance records As the person ultimately responsible for medication therapy, providers are able to order a medication from an existing home medication list in [facility] via the "Reconcile Routine" prior to Confirmation of that medication by system support analyst. Such practice is discouraged except when the physician, in their clinical judgment, deems that a medical need exists for a medication without regard to previous use.
--- NOTE | 2024-05-05 14:28 | PROVIDER PROGRESS NOTE ---
Subjective - Prog Note Date Prog Note Date: 05/05/24 Prog Note Time: 14:28 - Subjective Pt reports feeling: Improved Subjective: Presented to the emergency department after being "sick" "for about 5 days. Patient has a history of alcohol abuse has been mainly sober for about 2 years but has had periodic relapses. He has been currently drinking since last month says he drinks a couple of bottles of grape wine every day. He states this is a fortified wine. He quit drinking 5 to 6 days ago because he has not been feeling well. He has been n.p.o. with the exception of some chicken broth for about 5 days. He has had loose stools and vomiting. He says that during the first few days in the last week if not drinking he did have some shakes but he denies any hallucinations. He presented to the emergency department because he felt generalized malaise with abdominal pain.Since admission he is feeling somewhat better he is having decreased pain. He is required some morphine for his pain. He has had several episodes of dark urination. He is tolerating a clear liquid diet at this time. . He has a family history of possible pancreatic cancer. His father is unclear if it was colon cancer or pancreatic cancer. His mother is healthy with a history of lymphoma. Current Medications - Current Medications Current Medications: Medications Multivit/Folic Acid/Iron ( Vitamin Tablet) 1 tab PO DAILYWM [facility] Thiamine HCl (Thiamine 100 Mg Tablet) 100 mg PO DAILY [facility] Bupropion HCl (Bupropion Xl 150 Mg Tablet) 300 mg PO DAILY [facility] Last Admin: 05/05/24 10:30 Dose: 300 mg Gabapentin (Gabapentin 300 Mg Capsule) 300 mg PO BID [facility] Last Admin: 05/05/24 10:29 Dose: 300 mg Metoprolol Tartrate (Metoprolol Tartrate 25 Mg Tablet) 25 mg PO BID [facility] Morphine Sulfate (Morphine 2 Mg/Ml Carpuject) 2 mg IVP Q6HR PRN PRN Reason: Severe Pain (Level 7-10) Last Admin: 05/05/24 10:30 Dose: 2 mg Discontinued Medications Sodium Phosphate 15 mmol/ (Sodium Chloride) 255 mls @ 63.75 mls/hr IV ONCE ONE Stop: 05/05/24 12:59 Last Admin: 05/05/24 10:30 Dose: 63.75 mls/hr Objective - Vital Signs/Intake & Output Vital Signs: Vital Signs x48h Temp Pulse Resp BP Pulse Ox 05/05/24 12:17 36.4 C L 67 20 129/74 96 05/05/24 07:57 36.6 C 67 20 129/73 98 Intake & Output: Intake & Output 05/02/24 05/03/24 05/04/24 05/05/24 23:59 23:59 23:59 23:59 Intake Total 1101 3160 Output Total 275 Balance 1101 2885 - Objective General Appearance: positive: Alert Eyes Bilateral: negative: No scleral icterus (mild scleral icterus) ENT: positive: ENT inspection nml Neck: positive: Nml inspection, Trachea midline. negative: No JVD Respiratory: positive: Chest non-tender, No respiratory distress, Breath sounds nml Cardiovascular: positive: Regular rate & rhythm Peripheral Pulses: 2+ Dorsalis pedis (R), 2+ Dorsalis pedis (L), 2+ Posterior tibialis (R), 2+ Posterior tibialis (L) Abdomen: positive: Tenderness (mild in the epigastrium and RUQ. examined s everal times over the course of the day. his tenderness waxes and wanes.) Back: positive: Nml inspection Skin: positive: Color nml Extremities: positive: Non-tender, No pedal edema Neurologic/Psychiatric: positive: Oriented x3, Depressed mood/affect (mildly depressed affect. concerned that his alcoholism means that he is a bad person.) - Lab Results Fish Bones: 05/05/24 05:25 05/05/24 05:25 Other Labs: Lab Results x24hrs 05/05/24 05/05/24 05/04/24 Range/Units 05:25 05:25 18:15 WBC 3.9 L (4.8-10.8) x10^3/uL RBC 3.55 L (4.70-6.10) 10^6/uL Hgb 11.8 L (14.0-18.0) g/dL Hct 36.0 L (42.0-52.0) % MCV 101.4 H (80.0-94.0) fL MCH 33.2 H (27.0-31.0) pg MCHC 32.8 (32.0-36.0) g/dL RDW 14.5 (12.0-15.0) % Plt Count 54 L (130-450) 10^3/uL MPV 10.0 (7.4-11.4) fL Neut # (Auto) (1.5-6.6) 10^3/uL Lymph # (Auto) (1.5-3.5) 10^3/uL [place] # (Auto) (0.0-1.0) 10^3/uL Eos # (Auto) (0.0-0.7) 10^3/uL Baso # (Auto) (0.0-0.1) 10^3/uL Absolute Nucleated RBC x10^3/uL Nucleated RBC % /100WBC PT (9.9-12.6) secs INR (0.8-1.2) Sodium 136 (135-145) mmol/L Potassium 3.7 (3.5-4.5) mmol/L Chloride 98 L (101-111) mmol/L Carbon Dioxide 26 (21-32) mmol/L Anion Gap 12.0 (6-13) BUN 19 (6-20) mg/dL Creatinine 0.9 (0.6-1.3) mg/dL Estimated GFR (MDRD) 87 L (>89) Glucose 125 H (74-104) mg/dL Calcium 8.7 (8.5-10.3) mg/dL Phosphorus 2.3 L (2.5-5.0) mg/dL Magnesium 1.8 (1.7-2.3) mg/dL Total Bilirubin 1.7 H (0.2-1.0) mg/dL AST 648 H (10-42) IU/L ALT 467 H (10-60) IU/L Alkaline Phosphatase 110 (42-121) IU/L Total Protein 6.0 L (6.4-8.9) g/dL Albumin 3.8 (3.2-5.5) g/dL Globulin 2.2 (2.1-4.2) g/dL Albumin/Globulin Ratio 1.7 (1.0-2.2) Lipase 564 H (11-82) U/L Urine Color Urine Clarity (CLEAR) Urine pH (5.0-7.5) PH Ur Specific [place] (1.002-1.030) Urine Protein (NEGATIVE) mg/dL Urine Glucose (UA) (NEGATIVE) mg/dL Urine Ketones (NEGATIVE) mg/dL Urine Occult Blood (NEGATIVE) Urine Nitrite (NEGATIVE) Urine Bilirubin (NEGATIVE) Urine Urobilinogen (NORMAL) E.U./dL Ur Leukocyte Esterase (NEGATIVE) Urine RBC (0-5) /HPF Urine WBC (0-3) /HPF Ur Squamous Epith Cells (<= Few) Urine Bacteria (None Seen) /HPF Urine Casts /LPF Urine Mucus Ur Microscopic Review Urine Culture Comments Nasal Adenovirus (PCR) NOT DETECTED Nasal B. parapertussis DNA (PCR) NOT DETECTED Nasal Coronavir 229E PCR NOT DETECTED Nasal Coronavir HKU1 PCR NOT DETECTED Nasal Coronavir NL63 PCR NOT DETECTED Nasal Coronavir OC43 PCR NOT DETECTED Nasal Enterovir/Rhinovir PCR NOT DETECTED Nasal Influenza B PCR NOT DETECTED Nasal Influenza A PCR NOT DETECTED Nasal Parainfluen 1 PCR NOT DETECTED Nasal Parainfluen 2 PCR NOT DETECTED Nasal Parainfluen 3 PCR NOT DETECTED Nasal Parainfluen 4 PCR NOT DETECTED Nasal RSV (PCR) NOT DETECTED Nasal B.pertussis DNA PCR NOT DETECTED Nasal C.pneumoniae (PCR) NOT DETECTED Ho Human Metapneumo PCR NOT DETECTED Nasal M.pneumoniae (PCR) NOT DETECTED Nasal SARS-CoV-2 (PCR) NOT DETECTED Acetaminophen ug/mL Ethyl Alcohol mg/dL 05/04/24 05/04/24 05/04/24 Range/Units 17:29 17:28 17:28 WBC (4.8-10.8) x10^3/uL RBC (4.70-6.10) 10^6/uL Hgb (14.0-18.0) g/dL Hct (42.0-52.0) % MCV (80.0-94.0) fL MCH (27.0-31.0) pg MCHC (32.0-36.0) g/dL RDW (12.0-15.0) % Plt Count (130-450) 10^3/uL MPV (7.4-11.4) fL Neut # (Auto) (1.5-6.6) 10^3/uL Lymph # (Auto) (1.5-3.5) 10^3/uL [place] # (Auto) (0.0-1.0) 10^3/uL Eos # (Auto) (0.0-0.7) 10^3/uL Baso # (Auto) (0.0-0.1) 10^3/uL Absolute Nucleated RBC x10^3/uL Nucleated RBC % /100WBC PT 11.2 (9.9-12.6) secs INR 1.0 (0.8-1.2) Sodium (135-145) mmol/L Potassium (3.5-4.5) mmol/L Chloride (101-111) mmol/L Carbon Dioxide (21-32) mmol/L Anion Gap (6-13) BUN (6-20) mg/dL Creatinine (0.6-1.3) mg/dL Estimated GFR (MDRD) (>89) Glucose (74-104) mg/dL Calcium (8.5-10.3) mg/dL Phosphorus (2.5-5.0) mg/dL Magnesium 1.8 (1.7-2.3) mg/dL Total Bilirubin (0.2-1.0) mg/dL AST (10-42) IU/L ALT (10-60) IU/L Alkaline Phosphatase (42-121) IU/L Total Protein (6.4-8.9) g/dL Albumin (3.2-5.5) g/dL Globulin (2.1-4.2) g/dL Albumin/Globulin Ratio (1.0-2.2) Lipase (11-82) U/L Urine Color Urine Clarity (CLEAR) Urine pH (5.0-7.5) PH Ur Specific [place] (1.002-1.030) Urine Protein (NEGATIVE) mg/dL Urine Glucose (UA) (NEGATIVE) mg/dL Urine Ketones (NEGATIVE) mg/dL Urine Occult Blood (NEGATIVE) Urine Nitrite (NEGATIVE) Urine Bilirubin (NEGATIVE) Urine Urobilinogen (NORMAL) E.U./dL Ur Leukocyte Esterase (NEGATIVE) Urine RBC (0-5) /HPF Urine WBC (0-3) /HPF Ur Squamous Epith Cells (<= Few) Urine Bacteria (None Seen) /HPF Urine Casts /LPF Urine Mucus Ur Microscopic Review Urine Culture Comments Nasal Adenovirus (PCR) Nasal B. parapertussis DNA (PCR) Nasal Coronavir 229E PCR Nasal Coronavir HKU1 PCR Nasal Coronavir NL63 PCR Nasal Coronavir OC43 PCR Nasal Enterovir/Rhinovir PCR Nasal Influenza B PCR Nasal Influenza A PCR Nasal Parainfluen 1 PCR Nasal Parainfluen 2 PCR Nasal Parainfluen 3 PCR Nasal Parainfluen 4 PCR Nasal RSV (PCR) Nasal B.pertussis DNA PCR Nasal C.pneumoniae (PCR) Ho Human Metapneumo PCR Nasal M.pneumoniae (PCR) Nasal SARS-CoV-2 (PCR) Acetaminophen 0.1 ug/mL Ethyl Alcohol < 10.0 mg/dL 05/04/24 05/04/24 05/04/24 Range/Units 17:28 17:28 08:15 WBC 8.3 (4.8-10.8) x10^3/uL RBC 4.19 L (4.70-6.10) 10^6/uL Hgb 14.3 (14.0-18.0) g/dL Hct 40.6 L (42.0-52.0) % MCV 96.9 H (80.0-94.0) fL MCH 34.1 H (27.0-31.0) pg MCHC 35.2 (32.0-36.0) g/dL RDW 14.4 (12.0-15.0) % Plt Count 89 L (130-450) 10^3/uL MPV 9.5 (7.4-11.4) fL Neut # (Auto) 5.8 (1.5-6.6) 10^3/uL Lymph # (Auto) 1.5 (1.5-3.5) 10^3/uL [place] # (Auto) 0.9 (0.0-1.0) 10^3/uL Eos # (Auto) 0.0 (0.0-0.7) 10^3/uL Baso # (Auto) 0.1 (0.0-0.1) 10^3/uL Absolute Nucleated RBC 0.00 x10^3/uL Nucleated RBC % 0.0 /100WBC PT (9.9-12.6) secs INR (0.8-1.2) Sodium 134 L (135-145) mmol/L Potassium 4.1 (3.5-4.5) mmol/L Chloride 92 L (101-111) mmol/L Carbon Dioxide 17 L (21-32) mmol/L Anion Gap 25.0 H (6-13) BUN 23 H (6-20) mg/dL Creatinine 1.0 (0.6-1.3) mg/dL Estimated GFR (MDRD) 77 L (>89) Glucose 101 (74-104) mg/dL Calcium 9.5 (8.5-10.3) mg/dL Phosphorus (2.5-5.0) mg/dL Magnesium (1.7-2.3) mg/dL Total Bilirubin 2.8 H (0.2-1.0) mg/dL AST 1062 H (10-42) IU/L ALT 679 H (10-60) IU/L Alkaline Phosphatase 133 H (42-121) IU/L Total Protein 6.9 (6.4-8.9) g/dL Albumin 4.6 (3.2-5.5) g/dL Globulin 2.3 (2.1-4.2) g/dL Albumin/Globulin Ratio 2.0 (1.0-2.2) Lipase 398 H (11-82) U/L Urine Color DARK YELLOW Urine Clarity CLEAR (CLEAR) Urine pH 6.5 (5.0-7.5) PH Ur Specific [place] 1.025 (1.002-1.030) Urine Protein 30 H (NEGATIVE) mg/dL Urine Glucose (UA) NEGATIVE (NEGATIVE) mg/dL Urine Ketones >=80 H (NEGATIVE) mg/dL Urine Occult Blood NEGATIVE (NEGATIVE) Urine Nitrite NEGATIVE (NEGATIVE) Urine Bilirubin MODERATE H (NEGATIVE) Urine Urobilinogen 1 (NORMAL) (NORMAL) E.U./dL Ur Leukocyte Esterase NEGATIVE (NEGATIVE) Urine RBC None Seen (0-5) /HPF Urine WBC 0-3 (0-3) /HPF Ur Squamous Epith Cells RARE Squamous (<= Few) Urine Bacteria Rare (None Seen) /HPF Urine Casts 0-2 Hyaline Casts /LPF Urine Mucus Moderate Strands Ur Microscopic Review INDICATED Urine Culture Comments NOT INDICATED Nasal Adenovirus (PCR) Nasal B. parapertussis DNA (PCR) Nasal Coronavir 229E PCR Nasal Coronavir HKU1 PCR Nasal Coronavir NL63 PCR Nasal Coronavir OC43 PCR Nasal Enterovir/Rhinovir PCR Nasal Influenza B PCR Nasal Influenza A PCR Nasal Parainfluen 1 PCR Nasal Parainfluen 2 PCR Nasal Parainfluen 3 PCR Nasal Parainfluen 4 PCR Nasal RSV (PCR) Nasal B.pertussis DNA PCR Nasal C.pneumoniae (PCR) Ho Human Metapneumo PCR Nasal M.pneumoniae (PCR) Nasal SARS-CoV-2 (PCR) Acetaminophen ug/mL Ethyl Alcohol mg/dL - Diagnostic Imaging Diagnostic Imaging Results: positive: Final report reviewed Diagnostic Imaging Comments: Right upper quadrant ultrasound: Pancreas is not well-visualized. There is hepatomegaly and hepatic steatosis. Normal no biliary ductal dilation with normal-appearing gallbladder. ABX Reporting Has patient been on IV antibiotics over the past 48 hours?: No Assessment/Plan - Problem List (1) Pancreatitis, acute Impression: This is likely acute alcoholic pancreatitis. He has a ultrasound which is negative for any signs of choledocholithiasis. He has not had a hepatitis panel. This has been ordered. He does not have a history of alcoholic panc reatitis. He has a history of hyperlipidemia for which she takes atorvastatin. He denies a history of hypertriglyceridemia. Qualifiers: Pancreatitis type: alcohol induced (2) Alcohol abuse Impression: He has a history of exacerbating remitting alcoholism. With multiple relapses. He has been part of rehab groups through the [place]. And is interested in restarting this engagement. I have consulted social work (3) GI bleeding Impression: Stool positive for occult blood. Last colonoscopy in 2007. Patient states this was normal. He does FIT testing yearly through the [place]. And states this has been normal. He received 1 dose of IV Protonix in the emergency department. we will repeat CBC in the AM. continue to watch for melena. Qualifiers: GI bleed type/associated pathology: unspecified gastrointestinal hemorrhage type Qualified Code(s): K92.2 - Gastrointestinal hemorrhage, unspecified (4) Anemia Impression: Decreased H&H with increased MCV. Likely due to alcohol use. He is receiving supplementation. Will send anemia panel. (5) Hypophosphatemia Impression: Likely due to refeeding syndrome. Patient had been n.p.o. for 5 to 6 days prior to presentation. This was repleted this morning. Will recheck level in AM. (6) HLD (hyperlipidemia) Impression: Outpatient history of hyperlipidemia. When he is more stable and his diet will restart his atorvastatin. He takes 10 mg daily as an outpatient. Check lipid panel in a.m. for elevated triglycerides. (7) Atrial fibrillation Impression: Upon further interview patient admits to a history of atrial fibrillation in the past. He states he has been on metoprolol. He cannot tell me what the dose is. I am concerned that he will convert into this rhythm given his current stress of illness. Prior to this week he was taking his metoprolol it has been 5 to 6 days since his last dose. We are unable to obtain records readily from the [place] regarding his status. I will start him on 25 mg of metoprolol tartrate twice daily at this time. He has been normotensive to mildly hypertensive since adelita rodarte (8) Leukopenia Impression: Likely related to acute illness. Will repeat CBC in AM.
[2024-05-05] MEDS ORDERED: hydrOXYzine PAMOATE 25 MG CAPSULE PO PRN (16:05)
[2024-05-05] MEDS: PRENATAL VITAMIN TABLET PO SCH (16:55)
[2024-05-05] MEDS: THIAMINE 100 MG TABLET PO SCH (16:55)
--- NOTE | 2024-05-05 18:35 | ADVANCE CARE PLANNING NOTE ---
Advance Care Planning - Planning Encounter Date: 05/05/24 Time: 12:00 Purpose: to determine his desires for care. Parties in Attendance: patient, Yecenia Drummond MARYLIN Decisional Capacity of the Patient: decisional - Diagnosis for Encounter (1) Pancreatitis, acute Qualifiers: Pancreatitis type: alcohol induced (3) GI bleeding Qualifiers: GI bleed type/associated pathology: unspecified gastrointestinal hemorrhage type Qualified Code(s): K92.2 - Gastrointestinal hemorrhage, unspecified - Encounter Subjective/Patient's Story: has struggled with alcoholism for years. more recently issues with disability with regards to knee replacement and complications sustained from a knee replacement to include epidural abscess. He is waiting to have a second knee replacement. 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 He lives with a roommate. He has 1 daughter who he is starting to reform relationship with, however he would like his mother to be his surrogate decision maker. Objective/Medical Story: He is stable. His struggles with alcoholism and resultant pancreatitis are not life-threatening at this time. Goals of Care: Desires full treatment. Plan: Patient will remain full code. He he needs to legally designate his mother is his surrogate decision maker. He was informed of this. Code Status: Attempt Resuscitation Time spent on advance care plannin minutes
[2024-05-05] MEDS: METOPROLOL TARTRATE 25 MG TABLET PO SCH (21:16)
[2024-05-05] MEDS: TAMSULOSIN 0.4 MG CAPSULE PO SCH (21:17)
[2024-05-06 03:12] LABS: HBsAG SCREEN Negative (Negative); HCV AB Non Reactive (Non Reactive); HEPATITIS B CORE IGM AB Negative (Negative)
[2024-05-06 05:55] LABS: ABSOLUTE RETICS # AUTO 0.064 10^6/uL (0.020-0.110); RED BLOOD COUNT 3.77 10^6/uL (4.70-6.10); RETICULOCYTE COUNT % (AUTO) 1.7 % (0.5-2.3)
[2024-05-06 06:05] LABS: BASOPHILS % (AUTO) 0.7 %; EOSINOPHILS # (AUTO) 0.1 10^3/uL (0.0-0.7); EOSINOPHILS % (AUTO) 1.8 %; HCT - HEMATOCRIT 36.5 % (42.0-52.0); HGB - HEMOGLOBIN 12.6 g/dL (14.0-18.0); LYMPHOCYTES # (AUTO) 1.6 10^3/uL (1.5-3.5); LYMPHOCYTES % (AUTO) 35.6 %; MEAN CORPUSCULAR HEMOGLOBIN 33.9 pg (27.0-31.0); MEAN CORPUSCULAR HGB CONC 34.5 g/dL (32.0-36.0); MEAN CORPUSCULAR VOLUME 98.1 fL (80.0-94.0); MEAN PLATELET VOLUME 10.7 fL (7.4-11.4); MONOCYTES # (AUTO) 0.4 10^3/uL (0.0-1.0); MONOCYTES % (AUTO) 8.3 %; NEUTROPHILS # (AUTO) 2.4 10^3/uL (1.5-6.6); NEUTROPHILS % (AUTO) 53.1 %; PLT - PLATELET COUNT 67 10^3/uL (130-450); RED BLOOD COUNT 3.72 10^6/uL (4.70-6.10); RED CELL DISTRIBUTION WIDTH 13.9 % (12.0-15.0); WHITE BLOOD COUNT 4.4 x10^3/uL (4.8-10.8)
[2024-05-06 06:16] LABS: ALBUMIN 3.9 g/dL (3.2-5.5); ALBUMIN/GLOBULIN RATIO 1.7 (1.0-2.2); BILIRUBIN,TOTAL 1.2 mg/dL (0.2-1.0); CALCIUM 9.4 mg/dL (8.5-10.3); CREATININE 0.8 mg/dL (0.6-1.3); MAGNESIUM 1.6 mg/dL (1.7-2.3); PHOSPHORUS 2.3 mg/dL (2.5-5.0); POTASSIUM 3.1 mmol/L (3.5-4.5); TOTAL PROTEIN 6.2 g/dL (6.4-8.9)
[2024-05-06 06:34] LABS: % IRON SATURATION 18 % (20-50); CHOL/HDL RATIO 2.5 (<5.0); CHOLESTEROL 185 mg/dL; HDL CHOLESTEROL 73 mg/dL; IRON 36 ug/dL (50-212); LDL CHOLESTEROL,CALCULATED 95 mg/dL; LDL/HDL RATIO 1.3 (<3.6); TOTAL IRON BINDING CAPACITY 204 ug/dL (250-450); TRANSFERRIN 146 mg/dL (203-362); TRIGLYCERIDES 83 mg/dL (48-352); VLDL CHOLESTEROL 17 mg/dL
[2024-05-06 07:23] LABS: FERRITIN 637.9 ng/mL (23.9-336.2)
[2024-05-06 08:16] VITALS: O2SAT 95
--- NOTE | 2024-05-06 08:45 | Discharge Plan ---
Discharge Plan Problem Reviewed?: Yes Disposition: Home, Self Care Condition: Good Prescriptions: Ferrous Sulfate [Feosol] 325 mg PO DAILYWM #90 tab Potassium Chloride [K-Dur] 40 meq PO DAILYWM #90 tab Neutra-Phos [K-Phos Neutral] 250 mg PO TIDWM #90 tab Magnesium Oxide [Mag Ox] 400 mg PO DAILYWM 90 Days #90 tab Diet: Regular Activity Restrictions: No Restrictions Shower Restrictions: No Driving Restrictions: No Instruction Topics: Pancreatitis Acute Dc Health Concerns: You were admitted for abdominal pain nausea and vomiting. Your pancreatic and liver enzymes were elevated. It looks like this is due to alcohol consumption. You need to stop drinking alcohol. I think getting involved with your [place] substance abuse groups once again would be a great idea. Alcoholism is a disease and you need treatment for that disease. You also had some blood in your stool. I think it is important that you follow- up with your primary care provider for further evaluation and treatment of this. You had low electrolytes. These include low potassium, low magnesium and low phosphorus. You also had low sodium. I have prescribed some supplements for you to take regarding this. We are also putting you on oral iron for your anemia. I would like you to discontinue the hydroxyzine as this is not compatible with potassium medication. Your cholesterol panel looks good. You should continue your atorvastatin Continue to take your metoprolol to help your heart. We did not detect any atrial fibrillation here, which is good, but I would not stop this medication. Follow-up with your primary care provider at the [place] is very important. Plan of Treatment: See above. Please take medications as prescribed. Please follow-up with your primary care provider. You need a recheck of your liver enzymes, your electrolytes to include magnesium and phosphorus, as well as your iron levels and blood counts. Assessment: You have improved with your pancreatitis. Evidence of this improvement is that you are tolerating a regular diet and your appetite has come back. It is possible to get pancreatitis from alcohol again, and that is why you need to avoid alcohol. No Smoking: If you smoke, Please STOP! Call for help. Follow-up with: [facility] [Provider Group]
[2024-05-06] MEDS ORDERED: METOPROLOL SUCCINATE 25 MG TABLET PO SCH (09:00)
--- NOTE | 2024-05-06 09:22 | DISCHARGE SUMMARY ---
Discharge Summary Admit Date: 05/04/24 Discharge Date: 05/06/24 Discharging Provider: Yecenia Drummond PA-C Code Status: Attempt Resuscitation Condition at Discharge: Good Discharge Disposition: 01 Home, Self Care - DIAGNOSES Admission Diagnoses: Alcoholic hepatitis Alcoholic pancreatitis Alcohol abuse Low back pain Hyperlipidemia Discharge Diagnoses with Status of Each Condition: Acute alcoholic pancreatitis Ultrasound which was negative for any sign of biliary disease. Lipid panel negative for elevated triglycerides with no history of hypertriglyceridemia. Patient was counseled on the importance of alcohol cessation. Alcoholic hepatitis Hepatitis panel was negative for infectious hepatitis. Alcohol abuse History of exacerbating remitting alcoholism with multiple relapses. Has been a part of rehab groups at the [place]. Was seen by social work and given resources. GI bleeding Stool positive for occult blood. Last colonoscopy in 2007 which was normal. Does yearly FIT testing through the [place]. States this been normal. No melanotic bowel movements while admitted. Stool studies were negative for infectious agents. Anemia Decreased H&H with increased MCV. Received supplementation. Anemia panel sent. Revealing for iron deficiency anemia. Hypophosphatemia Likely due to refeeding syndrome patient had been n.p.o. 5 to 6 days prior to presentation. Phosphate was repleted Hyperlipidemia Outpatient history of hyperlipidemia he will restart his atorvastatin when his diet is more stable. 10 mg a day as an outpatient lipid panel was negative for elevated triglycerides which could have been a cause of his pancreatitis. Atrial fibrillation History of atrial fibrillation has been on metoprolol in the past. He will restart his metoprolol at the time of discharge he was normotensive to mildly hypertensive while he was admitted here. Leukopenia 8.3 on the date of admission then down to 3.9 on hospital day 2. Increasing to 4.4 on the date of discharge. Likely related to his acute illness. - HPI History of Present Illness: From [facility] c alcohol abuse. p/w abdominal pain and malaise since earlier this week. He binged drank over the weekend and started having sxs of malaise with subsequent abdominal pain. no acetaminophen. no trauma. prior hx of similar event with alcohol abuse. positive nausea. no vomiting. positive diarrhea. no bleed. no fever. no chills. no chest pain. no palpitation. no SOB. No dysuria. - HOSPITAL COURSE Hospital Course: [facility] after being unable to tolerate p.o. for intake for 5 to 6 days due to nausea vomiting and diarrhea. He is a chronic alcoholic and had had a relapse and had stopped drinking 5 to 6 days prior because he is not feeling well when he stopped drinking he did not have any withdrawal symptoms. He was admitted and given supportive therapy. He with IV fluids and antinausea medications. He had a workup for his pancreatitis and hepatitis which was negative for biliary disease negative for hepatitis and negative for hypertriglyceridemia. He was counseled on his alcohol use and abuse and he will seek outpatient resources. Electrolytes were repleted as noted in the discharge diagnoses and he was restarted on all of his outpatient medications. He was instructed [facility] - ALLERGIES Allergies/Adverse Reactions: Allergies Allergy/AdvReac Type Severity Reaction Status Date / Time No Known Drug Allergies Allergy Verified 05/04/24 17:14 - MEDICATIONS Home Medications: Ambulatory Orders Medication Instructions Recorded Confirmed Diclofenac Sodium 1% Gel [Voltaren 1 applic TOP BID 09/27/23 05/05/24 Gel] Cholecalciferol [Vitamin D3] 5,000 unit PO DAILY 09/29/23 05/04/24 Gabapentin [Neurontin] 600 mg PO BID 05/04/24 05/05/24 Atorvastatin Calcium 40 mg PO QPM 05/05/24 05/05/24 Metoprolol Succinate [Toprol Xl] 12.5 mg PO DAILY 05/05/24 05/05/24 Multivitamin W/Minerals [Theragran 1 each PO DAILY 05/05/24 05/05/24 M] Tamsulosin [Flomax] 0.8 mg PO QPM 05/05/24 05/05/24 Varenicline Tartrate 1 mg PO BID 05/05/24 05/05/24 buPROPion [Wellbutrin Xl] 450 mg PO DAILY 05/05/24 05/05/24 Ferrous Sulfate [Feosol] 325 mg PO DAILYWM #90 tab 05/06/24 Magnesium Oxide [Mag Ox] 400 mg PO DAILYWM 90 Days #90 tab 05/06/24 Neutra-Phos [K-Phos Neutral] 250 mg PO TIDWM #90 tab 05/06/24 Potassium Chloride [K-Dur] 40 meq PO DAILYWM #90 tab 05/06/24 - LABS Result Diagrams: 05/06/24 05:41 05/06/24 05:41
[2024-05-06] MEDS: buPROPion XL 150 MG TABLET PO SCH (09:26)
[2024-05-06 11:25] VITALS: BP 131/84
[2024-05-06] MEDS: POTASSIUM CHLORIDE 20 MEQ TABLET PO SCH (11:37)
[2024-05-06] MEDS: NEUTRA-PHOS 250 MG TABLET PO SCH (11:37)
[2024-05-06] MEDS: MAGNESIUM OXIDE 400 MG TABLET PO SCH (11:37)
[2024-05-06] MEDS: FERROUS SULFATE 325 MG TABLET PO SCH (11:37)
[2024-05-06 12:20] LABS: ADENOVIRUS F 40/41 Not Detected (Not Detected); ASTROVIRUS Not Detected (Not Detected); C DIFFICILE TOXIN A/B Not Detected (Not Detected); CAMPYLOBACTER Not Detected (Not Detected); CRYPTOSPORIDIUM Not Detected (Not Detected); CYCLOSPORA CAYETANENSIS Not Detected (Not Detected); ENTAMOEBA HISTOLYTICA Not Detected (Not Detected); ENTEROAGGREGATIVE E COLI Not Detected (Not Detected); ENTEROPATHOGENIC E COLI Not Detected (Not Detected); ENTEROTOXIGENIC E COLI Not Detected (Not Detected); GIARDIA LAMBLIA Not Detected (Not Detected); NOROVIRUS GI/GII Not Detected (Not Detected); PLESIOMONAS SHIGELLOIDES Not Detected (Not Detected); ROTAVIRUS A Not Detected (Not Detected); SALMONELLA Not Detected (Not Detected); SAPOVIRUS Not Detected (Not Detected); SHIGA-TOXIN-PRODUCING E COLI Not Detected (Not Detected); SHIGELLA/ENTEROINVASIVE E COLI Not Detected (Not Detected); VIBRIO Not Detected (Not Detected); VIBRIO CHOLERAE Not Detected (Not Detected); YERSINIA ENTEROCOLITICA Not Detected (Not Detected)
== END 2024-05-06 14:58 | disposition home or self-care (01) ==
LOC: ED 16:46 → INTOOBSV 20:58 → MS2 20:58
PROVIDERS: ADMIT Internal Medicine; ATTEND Physician Assistant Medical
DX: K85.20 Alcohol induced acute pancreatitis without necrosis or infection (principal); K70.10 Alcoholic hepatitis without ascites; R18.8 Other ascites; M54.50 Low back pain, unspecified; E78.5 Hyperlipidemia, unspecified; K92.1 Melena; D50.9 Iron deficiency anemia, unspecified; I48.91 Unspecified atrial fibrillation; D72.819 Decreased white blood cell count, unspecified; E83.39 Other disorders of phosphorus metabolism; F10.20 Alcohol dependence, uncomplicated; Z20.818 Contact with and (suspected) exposure to other bacterial communicable diseases; Z20.822 Contact with and (suspected) exposure to COVID-19; Z20.828 Contact with and (suspected) exposure to other viral communicable diseases; Z79.899 Other long term (current) drug therapy; Z96.659 Presence of unspecified artificial knee joint
CPT/HCPCS: 36415; 76705; 80053; 80061; 80074; 80143; 81001; 82077; 82272; 82607; 82728; 83540; 83615; 83690; 83735; 84100; 84466; 85025; 85027; 85045; 85610; 87507; 87633; 96361; 96365; 96366; 96367; 96375; 96376; 99285; A9270; G0378; J3411; J7040; 81003; 83721; 87086

== ENCOUNTER 2024-07-15 23:11 | Outpatient (CLI) | payer OTHER | END 2024-07-15 23:12 | disposition critical access hospital (66) | LOC: EMS 23:11 | DX: Z04.6 Encounter for general psychiatric examination, requested by authority (principal); F32.A Depression, unspecified; F10.10 Alcohol abuse, uncomplicated; R11.0 Nausea | CPT/HCPCS: A0425; A0429 ==

== ENCOUNTER 2024-07-15 23:31 | Emergency (ER) | payer OTHER ==
--- NOTE | 2024-07-16 00:29 | ED Physician Documentation ---
History of Present Illness - Stated complaint Stated Complaint: DEPRESSION, ETOH - Chief complaint Chief Complaint: MHE - History obtained from History obtained from: Patient - Additonal information Additional information: HPI from patient. Patient states "I have a problem with alcohol for a long time". Patient was admitted to [facility] 2 months ago, "sober since until I went on a velasco" (per patient); he says he recently resumed drinking alcohol. He says he was feeling depressed and that he needed help with his alcoholism and alcohol withdrawal and thus called a medical advice hotline associated with the [facility]. He says someone from the [facility] hotline staff then called 911 for an ambulance to transport him to nearest ED. Patient strongly denies SI/HI/AH/VH on my HPI. Patient's last alcohol intake was this AM. Patient says he is scheduled for inpatient treatment of alcoholism (detox/rehab) in ten days. PD PAST MEDICAL HISTORY - Past Medical History Cardiovascular: Atrial fibrillation Respiratory: None Neuro: None Endocrine/Autoimmune: None GI: Hepatitis, Cirrhosis : Retention, Other HEENT: Chronic vision loss, Other Psych: Anxiety Musculoskeletal: Osteoarthritis Derm: None - Past Surgical History Past Surgical History: Yes General: Appendectomy, Colonoscopy Ortho: Knee replacement - Present Medications Home Medications: Ambulatory Orders Medication Instructions Recorded Confirmed Diclofenac Sodium 1% Gel [Voltaren 1 applic TOP BID 09/27/23 05/05/24 Gel] Cholecalciferol [Vitamin D3] 5,000 unit PO DAILY 09/29/23 05/04/24 Gabapentin [Neurontin] 600 mg PO BID 05/04/24 05/05/24 Atorvastatin Calcium 40 mg PO QPM 05/05/24 05/05/24 Metoprolol Succinate [Toprol Xl] 12.5 mg PO DAILY 05/05/24 05/05/24 Multivitamin W/Minerals [Theragran 1 each PO DAILY 05/05/24 05/05/24 M] Tamsulosin [Flomax] 0.8 mg PO QPM 05/05/24 05/05/24 Varenicline Tartrate 1 mg PO BID 05/05/24 05/05/24 buPROPion [Wellbutrin Xl] 450 mg PO DAILY 05/05/24 05/05/24 Ferrous Sulfate [Feosol] 325 mg PO DAILYWM #90 tab 05/06/24 Magnesium Oxide [Mag Ox] 400 mg PO DAILYWM 90 Days #90 tab 05/06/24 Neutra-Phos [K-Phos Neutral] 250 mg PO TIDWM #90 tab 05/06/24 Potassium Chloride [K-Dur] 40 meq PO DAILYWM #90 tab 05/06/24 LORazepam [Ativan] See Rx Instructions .ROUTE 07/16/24 .COMPLEX #20 tablet - Allergies Allergies/Adverse Reactions: Allergies Allergy/AdvReac Type Severity Reaction Status Date / Time No Known Drug Allergies Allergy Verified 07/15/24 23:38 - Social History Does the pt smoke?: No Smoking Status: Never smoker Does the pt drink ETOH?: No ETOH Use: Beer, Liquor Does the pt have substance abuse?: No - Immunizations Immunizations are current?: Yes - POLST Patient has POLST: No PD ED PE NORMAL - Vitals Vital signs reviewed: Yes - General General: Alert and oriented X 3, No acute distress, Well developed/nourished - HEENT HEENT: Moist mucous membranes - Cardiac Cardiac: RRR, No murmur - Respiratory Respiratory: No respiratory distress, Clear bilaterally - Abdomen Abdomen: Soft, Non tender - Neuro Neuro: Alert and oriented X 3 Eye Opening: Spontaneous Motor: Obeys Commands Verbal: Oriented GCS Score: 15 - Psych Psych: Normal mood, Normal affect Results - Vitals Vitals: Vital Signs - 24 hr 07/15/24 07/16/24 07/16/24 23:39 01:12 03:00 Temperature 36.1 C L Heart Rate 88 88 89 Respiratory 18 18 20 Rate Blood Pressure 136/87 H 136/87 H 130/69 O2 Saturation 95 93 98 07/16/24 03:33 Temperature Heart Rate 88 Respiratory 16 Rate Blood Pressure 129/88 H O2 Saturation 98 Oxygen O2 Source Nasal cannula - Labs Labs: Laboratory Tests 07/16/24 07/16/24 01:34 01:34 WBC 8.5 RBC 4.60 L Hgb 15.4 Hct 44.4 MCV 96.5 H MCH 33.5 H MCHC 34.7 RDW 12.6 Plt Count 159 MPV 8.9 Neut # (Auto) 6.7 H Lymph # (Auto) 1.3 L [place] # (Auto) 0.3 Eos # (Auto) 0.1 Baso # (Auto) 0.1 Absolute Nucleated RBC 0.00 Nucleated RBC % 0.0 Sodium 139 Potassium 4.0 Chloride 99 L Carbon Dioxide 24 Anion Gap 16.0 H BUN 21 H Creatinine 0.8 Estimated GFR (MDRD) 99 Glucose 121 H Calcium 8.3 L Magnesium 1.8 Total Bilirubin 0.8 AST 1193 H ALT 960 H Alkaline Phosphatase 98 Total Protein 6.4 Albumin 4.0 Globulin 2.4 Albumin/Globulin Ratio 1.7 Lipase 27 Ethyl Alcohol 331.6 PD Medical Decision Making - ED course Complexity details: reviewed results, re-evaluated patient, considered differential, d/w patient ED course: I asked patient what his goal(s) are regarding [facility]'s ED evaluation. He is chiefly concerned with alcohol withdrawal. He tells me "if I can just get through the next few days I'll be fine"; in seeking clarification, he goes on to reiterate fear of alcohol withdrawal. We discussed option of inpatient treatment at appropriate facility (such as [facility]) and he is not interested in inpatient treatment at this time. I also offered telepsychiatric evaluation which he also declines; he is strongly denying SI/HI. I am providing rx for lorazepam (2mg PO given in ED prior to d/c) with tapering dose. I very specifically instructed him to neither take more than the prescribed dosing (nor take doses ahead of schedule) and to not drink any alcohol while on this taper. I explained to him that if his symptoms are not adequately controlled with the lorazepam, he should return to ED. Prior to d/c, he is now telling me he feels he needs blood tests [facility]. I explained that he is not describing signs/symptoms that would indicate need for blood tests nor are there findings on physical exam that would prompt such testing. He then says he feels similar symptoms to those that led to his admission to [facility] in April. Thus, blood tests are then undertaken. The most notable finding is elevated transaminases but normal lipase, normal bilirubin. Serum ETOH is predictably elevated (330). I discussed these results w/ patient and he had no further questions nor concerns and thus he is d/c with the rx for lorazepam taper. Departure - Departure Disposition: 01 Home, Self Care Clinical Impression: Alcohol withdrawal Condition: Good Instructions: ED Withdrawal Alcohol Prescriptions: LORazepam [Ativan] See Rx Instructions .ROUTE .COMPLEX #20 tablet Comments: I have electronically submitted a prescription for a lorazepam to the [facility] pharmacy in [place]. This medication can help reduce the symptoms of alcohol withdrawal. As we discussed, it is critically important that you follow the taper exactly as per the prescription label. Do not drink any alcohol while using this medication. If at any time during the medication taper you feel inadequate control of your symptoms, you should return to the emergency department (as opposed to taking more than prescribed and/or drinking alcohol). For purposes of clarification, I am also including the taper and these instructions as follows: Take 2 mg (2 tablets) by mouth twice per day for the first 2 days, then 1 mg (1 tablet) 3 times per day for the next 2 days, then 1 mg (1 tablet) by mouth twice per day for the next 2 days, and then 1 mg (1 tablet) once per day for the foll owing 2 days. As we discussed, consider contacting the [facility] stabilization center in [place] to see if that is a possible option for treatment of your alcohol withdrawal. [facility] [address] [facility] offers a monitored and safe setting for individuals withdrawing from alcohol and drugs, and counseling for individuals experiencing a mental health crisis. All services are provided in a 10-bed facility where intensive medical monitoring is required along with stabilization services. The goal of these services is to assess a clients mental health and substance use disorder related needs, and assist them in accessing the services they need to recover. Discharge Date/Time: 07/16/24 03:33
[2024-07-16] MEDS: LORazepam 0.5 MG TABLET PO STA (01:20)
[2024-07-16 01:38] LABS: BASOPHILS # (AUTO) 0.1 10^3/uL (0.0-0.1); BASOPHILS % (AUTO) 0.9 %; EOSINOPHILS # (AUTO) 0.1 10^3/uL (0.0-0.7); EOSINOPHILS % (AUTO) 0.6 %; HCT - HEMATOCRIT 44.4 % (42.0-52.0); HGB - HEMOGLOBIN 15.4 g/dL (14.0-18.0); LYMPHOCYTES # (AUTO) 1.3 10^3/uL (1.5-3.5); LYMPHOCYTES % (AUTO) 15.5 %; MEAN CORPUSCULAR HEMOGLOBIN 33.5 pg (27.0-31.0); MEAN CORPUSCULAR HGB CONC 34.7 g/dL (32.0-36.0); MEAN CORPUSCULAR VOLUME 96.5 fL (80.0-94.0); MEAN PLATELET VOLUME 8.9 fL (7.4-11.4); MONOCYTES # (AUTO) 0.3 10^3/uL (0.0-1.0); MONOCYTES % (AUTO) 3.6 %; NEUTROPHILS # (AUTO) 6.7 10^3/uL (1.5-6.6); PLT - PLATELET COUNT 159 10^3/uL (130-450); RED CELL DISTRIBUTION WIDTH 12.6 % (12.0-15.0); WHITE BLOOD COUNT 8.5 x10^3/uL (4.8-10.8)
[2024-07-16 01:51] LABS: ETOH - ETHANOL 331.6 mg/dL; MAGNESIUM 1.8 mg/dL (1.7-2.3)
[2024-07-16 01:55] LABS: ALBUMIN/GLOBULIN RATIO 1.7 (1.0-2.2); BILIRUBIN,TOTAL 0.8 mg/dL (0.2-1.0); CALCIUM 8.3 mg/dL (8.5-10.3); CREATININE 0.8 mg/dL (0.6-1.3); TOTAL PROTEIN 6.4 g/dL (6.4-8.9)
[2024-07-16 03:20] VITALS: O2SAT 98
[2024-07-16 03:40] VITALS: BP 129/88
== END 2024-07-16 03:33 | disposition home or self-care (01) ==
LOC: EDUNIT# → ED 23:31
DX: F10.239 Alcohol dependence with withdrawal, unspecified (principal); F10.229 Alcohol dependence with intoxication, unspecified; Y90.8 Blood alcohol level of 240 mg/100 ml or more
CPT/HCPCS: 36415; 80053; 82077; 83690; 83735; 85025; 99283; 99284; A9270